=== PATIENT | female | born 1985 | race African-American/Black ===

== ENCOUNTER 2025-05-17 15:20 | Outpatient (AMB) | payer OTHER, SELFPAY ==
--- NOTE | 2025-05-17 15:35 | A.OFFVIS_ITS ---
Intake Visit Reasons: fu for seizures Allergies lisinopril (LISINOPRIL) Allergy (Unknown, Unverified 06/09/20 19:50) ANGIOEDEMA paroxetine (From PAXIL) Allergy (Unknown, Unverified 06/09/20 19:50) RESTLESS Medication List - Last Reconciled 05/17/25 by Piter Amor MD amlodipine 5 mg PO BID cetirizine 10 mg PO DAILY ergocalciferol (vitamin D2) 1,250 mcg PO QWEEK fluticasone propionate 50 mcg/actuation intranasal hydralazine 25 mg PO TID labetalol 200 mg PO BID levetiracetam 500 mg PO BID losartan-hydrochlorothiazide 100-25 mg 1 tab PO DAILY pyridoxine (vitamin B6) (Vitamin B-6) 250 mg PO DAILY sertraline mg PO HPI Comments Details: 39 years old right-handed woman with hypertension and headaches. She has been having headaches for many years. Recently her headaches have become more frequent and intense. Also she has developed new set of symptoms. Couple of times she went emergency room after developing left-sided numbness and headache. Numbness started in head and neck area and it took a few minutes to travel down to her left foot. It lasted for an hour to an she had severe headache associated with it. Both times she went to the emergency room. There was no history of recent trauma. Headache was usually bitemporal or in the back of the head, pressure to throbbing type, moderate to severe, worse with light and noise, and associated with nausea. She would prefer to go to a dark room and rest. It could lender on for hours to days. She is presenting with seizures and neurological symptoms. Her initial seizure on March 15, 2023, involved four episodes within ten minutes, leading to her hospitalization at [facility] for imaging studies. Subsequently, she experienced another seizure during a hot day, followed by an admission to [facility], where she received Keppra. The patient developed progressive bilateral numbness and tingling in her extremities. She has undergone extensive imaging and stays at her prior hospital visits but exhibits persistent symptoms despite these evaluations. She experienced another seizure and a fall two weeks ago, resulting in hand swelling and another hospitalization at [facility]. Additionally, the patient ex periences significant psychological stress due to her 's colon cancer diagnosis, contributing to her condition. [facility] Medical History (Updated 05/17/25 @ 15:46 by Piter Amor MD) Migraine with aura Migraine without aura Review of Systems Const Details: - Neurological: Reports seizures, weakness, numbness, and tingling in arms and legs. - Psychological: Reports significant stress due to 's illness. Physical Exam Neuro Other: Mental Status: Alert and oriented to person, place, and time. Normal attention. Normal spontaneous speech, fluency, and comprehension. No obvious issues with mood and memory. Affect is appropriate. Cranial Nerves: CN II: Visual akers full to confrontation, visual acuity intact. CN III, IV, : Pupils equal, round, reactive to light and accommodation. Extraocular movements are normal. CN V: Facial sensation is normal. CN VII: Facial movements symmetrical. CN VIII: Hearing intact to bedside conversation is normal. CN IX, X: Palate elevates symmetrically. CN XI: Shoulder shrug and head turn symmetrical. CN XII: Tongue midline without atrophy or fasciculations. Motor: Bulk and tone normal in all extremities. No significant muscle weakness in arms and legs. No drift. Extrapyramidal: Full facial expressions and blinking. No rigidity. Movements are appropriate with no tremor or abnormality. Speech: Normal; no dysarthria or tremor. Assessment & Plan Assessment & Plan (1) Migraine without aura: Code(s): G43.009 - Migraine without aura, not intractable, without status migrainosus Category: Medical Qualifiers: Status migrainosus presence: without status migrainosus Intractability: not intractable Qualified Code(s): G43.009 - Migraine without aura, not intractable, without status migrainosus (2) Migraine with aura: Code(s): G43.109 - Migraine with aura, not intractable, without status migrainosus Category: Medical Qualifiers: Status migrainosus presence: without status migrainosus Intractability: not intractable Qualified Code(s): G43.109 - Migraine with aura, not intractable, without status migrainosus (3) Seizure disorder: Comment: CT brain WO at [facility] in February 2025: [place] (reported) CTA brain and neck at [facility] in February 2025: [place] (reported) MRI brain WO at [facility] in February 2025: [place] (reported) EEG at [facility] in February 2025: [place] (reported) Code(s): G40.909 - Epilepsy, unspecified, not intractable, without status epilepticus Category: Medical Plan Impression: a: Seizure disorder, nature unclear, epileptic vs non b: Migraine with and w/o aura Rec: 48 hr EEG She was educated about both possibilities. She was already seeing a therapist and has indicated about some significant stresses in her life. Orders: Orders EEG ambulatory Today G40.909 - Epilepsy, unspecified, not intractable, without status epilepticus Coding Level of Care Code Est Pt Level 4 (67559) Diagnoses Migraine without aura and without status migrainosus, not intractable G43.009 Status migrainosus presence: without status migrainosus Intractability: not intractable Migraine with aura and without status migrainosus, not intractable G43.109 Status migrainosus presence: without status migrainosus Intractability: not intractable Seizure disorder G40.909
--- OUTSIDE RECORDS SUMMARY | 2025-05-17 16:56 | XMS_ITS | Clinical Summary ---
Author Organization [facility] Address [address] [place] [address] Phone Care Team Providers Care National Sales Consultant Name Role Phone Yusra Nick MD Primary Care Provider [phone] Allergies Active Allergy Reactions Criticality Noted Date Comments Lisinopril 04/03/2019 Angioedema Paroxetine 06/10/2014 Sleeplessness, restlessness sleeplessness Medications levonorgestreL (MIRENA) 21 mcg/24hr (up to 8 yrs) 52 mg IUD 1 each by Intrauterine route Active losartan-hydroC HLOROthiazide (HYZAAR) 100-25 mg per tablet Take 1 tablet by mouth 1 (one) time each day. 4 09/04/20 25 Active sertraline (ZOLOFT) 50 mg tabletIndicatio ns:Anxiety Take 1 tablet (50 mg total) by mouth 1 (one) time each day. 90 tablet 5 Active amLODIPine (NORVASC) 5 mg tablet TAKE 1 TABLET BY MOUTH 2 TIMES DAILY FOR 180 DAYS. 180 tablet 1 5 Active hydrALAZINE (APRESOLINE) 25 mg tablet Take 1 tablet (25 mg total) by mouth 3 (three) times a day. 270 tablet 1 5 Active labetaloL (NORMODYNE) 200 mg tablet TAKE 1 TABLET BY MOUTH 2 TIMES DAILY FOR 180 DAYS. 180 tablet 1 5 Active ergocalciferol (VITAMIN D-2) 1,250 mcg (50,000 unit) capsule Take 1 capsule (50,000 Units total) by mouth 1 (one) time per week. 12 each 5 03/17/20 26 Active pyridoxine (B-6) 250 mg tablet Take 1 tablet (250 mg total) by mouth 1 (one) time each day. 30 tablet 2 5 03/17/20 26 Active fluticasone propionate (FLONASE) 50 mcg/actuation nasal spray Administer 2 sprays into each nostril 1 (one) time each day. 5 Active amoxicillin-cla vulanate (AUGMENTIN) 875-125 mg per tablet Take 1 tablet by mouth 2 (two) times a day. for 7 days 5 Active cetirizine (ZyrTEC) 10 mg tablet Take 1 tablet (10 mg total) by mouth 1 (one) time each day. 5 Active levETIRAcetam (KEPPRA) 500 mg tablet Take 1 tablet (500 mg total) by mouth 2 (two) times a day. 60 each 5 06/02/20 25 Active Active Problems Problem Noted Date Diagnosed Date Seizure ([facility] V24, [facility] V28) 03/16/2025 Acute left-sided weakness 03/15/2025 Cervical spondylosis 02/06/2024 Overview (09/01/2024): Last Assessment & Plan: Patient is almost 2 months s/p C5-6, C6-7 ACDF, states that she sees improvement in her preop left arm and leg numbness, gets occasional tingling in the fingers but otherwise doing well. Her main concern today is neck soreness the last 4 days, she has not been sleeping well, has difficulty turning her head to the left, has b/l upper trapezius spasm. No specific inciting event to flareup her neck pain and spasm/stiffness. She has not been needing oxycodone just Tylenol prn, however the last 3 nights did take oxycodone at bedtime. She denies fever, sweats chills, issues with the incision, swallow issues. Ms. Guzman has seen some improvement in her preop symptoms, has some persistent neck pain and spasm postop, is not yet ready to return to work. We talked about trying physical therapy for massage and TENS unit to see if this can help some of the spasm. She has Flexeril at home, will see if that helps as well. She states she has some recent elevated blood pressures, following up with her PCP. She had cervical spine x-rays done today prior to coming in and hardware intact, looks good. She can follow-up with with C-spine x-rays at 1 year. All questions answered. Assessment & Plan (11/13/2024 4:12 PM EST): Ms. Guzman is approximately 8 months s/p C5-6, C6-7 ACDF and was doing pretty well but recently has noticed increased neck pain, and a couple weeks of constant n/t in arms, hands and fingers. Her finger n/t seems to start in the 4th and 5th digits, but affect all the digits. She has a history of right carpal tunnel release in 2022, but did not have surgery for her left carpal tunnel syndrome. She quit smoking after her cervical fusion. No particular inciting event. She was in significant pain and went to urgent care, they prescribed Cyclobenzaprine and Diclofenac gel. It helped her sleep last night. She has been takes warm tub baths to help her neck pain. When she gets the shooting pain she feels her legs are weak. She had x-rays yesterday at [facility] (urgent care) of her C/S, T/S, L/S, her C5-7 hardware is intact, there appears to be more bony fusion at C5-6 but still some bone forming in anterior C6-7 disc space. Minimal decreased disc space C7- T1. Otherwise no significant findings in spine x-rays. We looked at the x-rays together. Ms. Guzman has increasing neck pain and arm numbness over the past few weeks. I will review the x-rays with Dr. Caro, see if she recommends external bone stimulator or updated C/S MRI. I also will get EMG/NCS UEs since she has + Tinel's at the elbows b/l and left wrist. She was cleared by Dr. Peters to try Medrol Dosepack for her pain and n/t. She states she cannot take NSAIDS because she had gastric bypass (> 2 yrs ago). I gave her rx for P.T. for the neck spasm. I will call her after reviewing her x-rays with Dr. Caro. All questions answered. ADDENDUM 11/13/2024: I reviewed patient's C-spine x-rays with Dr. Caro, she notes that C5-6 does appear to have more bone growth than C6-7, although typically 1 level does fuse faster than the other. Since patient has increasing neck pain she would like us to order external bone stimulator and have patient follow-up in a couple months. Vitamin D deficiency 09/07/2022 Leukocytosis 09/07/2022 Hypercholesterolemia 08/03/2022 Gastroesophageal reflux disease without esophagi tis 03/02/2022 Hepatic steatosis 04/23/2021 Ventricular bigeminy 04/03/2021 Overview (09/01/2024): Ventricular bigeminy History of COVID-19 10/23/2020 COVID-19 virus infection 10/23/2020 Left carpal tunnel syndrome 11/18/2019 LVH (left ventricular hypertrophy) 06/03/2019 Overview (09/01/2024): On echo 05/2019, nl LV function, nl EF Last Assessment & Plan: The patient's LVH has not progressed on her most recent stress echocardiogram. Ongoing blood pressure control and weight management are paramount. Update her echocardiogram in about a year to follow her LVH. 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 [facility] Treatment Polysomnogram: Date 10/27/2015; Wt 248#; BMI 46; SE 81%; SM 100%; REM 28%; CPAP @ 10 -> AHI 0.9, average oxygen saturation 97% (lowest 94%). Mild diastolic dysfunction 06/10/2014 Overview (09/01/2024): Echo 2008/EFR 50-55% Migraine 06/10/2014 Hypertension 06/10/2014 Overview (09/01/2024): Last Assessment & Plan: The patient's blood pressure is well controlled in office and during her stress test. Her blood pressure is also well controlled on chart review. She is now followed by Dr. Stinson from [facility], and she has an appointment upcoming with him in September. For now, continue her beta-spencer, ARB, aldosterone blockade and clonidine. I do not see that she had a repeat urine catecholamine test as Dr. Haynes discussed at her last visit, but we will leave this up to Dr. Stinson to determine if he would like to repeat now that her blood pressure is well controlled. Hirsutism 06/10/2014 Anxiety 06/10/2014 Encounters Date Type Department Care Team Description 05/17/2025 Telephone Adult Medicine [address] [phone] Glen Beavers LPN 05/03/2025 3:07 PM EDT - 05/03/2025 4:[address] [facility] Emergency [address] [place] [address] Sam Syed MD Seizure ([facility] V24, [facility] V28) (Primary Dx); Pain of left hand; Acute left ankle pain Discharge Disposition: Home or Self Care 04/12/2025 8:45 AM EDT Office Visit Bariatric Surgery - [place] [address] [facility] [address] [place] [address] Gemma Peters MD S/P gastric bypass (Primary Dx); Weight gain; Seizure (CMS/HCC V24, CMS/HCC V28); Inactivity 03/30/2025 11:30 AM EDT Office Visit Adult [address] [phone] Joanne Smith NP Seizure (CMS/HCC V24, CMS/HCC V28) (Primary Dx) 03/30/2025 Telephone Adult [address] [address] Joanne Smith NP 03/25/2025 Telephone Adult [address] [phone] Yusra Nick MD 03/23/2025 Telephone Adult [address] [phone] Yusra Nick MD 03/22/2025 10:30 AM EDT Office Visit [address] [phone] Melvi Danielle MD New onset seizure (CMS/HCC V24, CMS/HCC V28) (Primary Dx); Primary hypertension; Marijuana use; Left hemiparesis (CMS/HCC V24, CMS/HCC V28); Cigarette smoker 03/18/2025 Telephone Adult [address] [address] Yusra Nick MD 03/16/2025 10:22 AM EDT - 03/17/2025 4:15 PM EDT Hospital Encounter [facility] Emergency [address] [place] [address] Arun Houston MD Kela, Kashyap Devendrabhai, MD Weakness (Primary Dx) Discharge Disposition: Home or Self Care 03/15/2025 7:42 AM EDT - 03/15/2025 11:30 PM EDT Hospital Encounter [facility] Emergency [address] [place] [address] Norbert Santoyo MD Bukalo, Nermina, MD Seizure ([facility] V24, [facility] V28) (Primary Dx); Chest pain, unspecified type Discharge Disposition: Left Against Medical Advice from Last 3 Months Immunizations Name Administration Dates Next Due DTaP (Infanrix) 6wks to less than 7yo ,07/24/1989,07/24/1988,08/23,06/23/1987 [id number] (Pentacel) 2mo to less than 5yo 07/24/1988 Diptheria & Tetanus, 6wks to less than 7yo 07/01/2003,08/02/1997 HPV, Quadrivalent 11/01/2011 Hepatitis B Pediatric (Enger ix B; Recombivax HB) to less than 20 yo 07/11/1999,02/10/1999,12/22/1998 Influenza Quadravalent, MDCK , 0.5ml, with preservative (Flucelvax) 6mo and older 07/11/2018 Influenza trivalent, 0.5mL, preservative free (Fluarix; FluLaval; Fluzone) ages 6mo and older (Afluria) 3 years and older 06/09/2024,06/27/2021,07/28/2020 MMR, measles mumps and rubel la Live (Priorix; M-M-R II) 12mo and older 12/23/2019 OPV 03/23/1991, 9,08/03/1988,08/23,06/23/1987 PPD Test 07/04/2015,06/05/2014,04/19/2010 [place] SARS-CoV-2 COVID-19, mRNA, LNP-S, preservative free 09/08/2021 Pneumococcal polysaccharide 23 valent (Pneumovax 23) 2yo and older 10/24/2017 Tdap Tetanus diptheria acell ular pertussis (Boostrix; Adacel) 7yo and older 06/30/2021,12/16/2019,09/20/2018,08/09 Varicella live (Varivax) 12m o and older 12/23/2019,09/23/1991 Surgical History Surgery Date Site/Laterality Comments SECTION x2 TONSILLECTOMY OTHER SURGICAL HISTORY 2011 2009/chlamydia/neg since APPENDECTOMY 10/30/2015 OTHER SURGICAL HISTORY 10/03/2017 EXCISION PILONIDAL CYST/SINUS COMPLICATED; COMMENT: Recurrent NECK SURGERY 02/24/2024 C5-6, C6-7 ACDF, Dr. Caro GASTRIC BYPASS 09/23/2021 - 09/22/2022 Dr. Gardner Medical History Medical History Date Comments Anxiety 06/10/2014 Hypertension 06/10/2014 Hirsutism 06/10/2014 Migraine 06/10/2014 History of chlamydia 06/10/20142009/paps n eg since Morbid obesity ([facility] V24, [facility] V28) 014 bmi 41.66 /on 11/01/11 Mild diastolic dysfunction 06/10/2014 DM (diabetes mellitus), type 2 with renal complications ([facility] V24, [facility] V28) 12/27/2017 Ventricular bigeminy 04/03/2021 LVH (left ventricular hypertrophy) 06/03/2019 On echo 05/2019, nl LV function, nl EF Gastroesophageal reflux dise ase without esophagitis 03/02/2022 Hepatic steatosis 04/23/2021 Left carpal tunnel syndrome 11/18/2019 Obstructive sleep apnea hypo pnea, moderate 09/29/2015 09/17/15, [facility], titratio n study, recommends CPAP 10 , elevation of head [facility] [place]ysomnogram: Date 09/17/2015; Wt 248#; BMI 43; SE 93%; SM 99%; REM 13%; AHI 16, REM AHI 15, Central apneas 0; Obstructive apneas 1; Mixed apneas 0; hypopneas 77; average oxygen saturation 94% (lowest 90%). [facility] Treatment Polysomnogram: Date 10/27/2015; Wt 248#; BMI* S/P bariatric surgery 01/17/2024 Family History Medical History Relation Name Comments Coronary artery disease Mother's Brother 41 Relation Name Status Comments Mother's Brother Social History Tobacco Use Types Packs/Day Years Used Date Smoking Tobacco: Every Day Cigarettes 0.4 21.1 Started: 2002; Last attempted to quit: 01/22/2024 Smokeless Tobacco: Never Tobacco Cessation:Ready to Q uit: Not Asked; Counseling Given: Not Answered Alcohol Use Standard Drinks/Week Comments Yes 0 (1 standard drink = 0.6 oz pur e alcohol) Social Comments No Sex and Gender Information Value Date Recorded Sex Assigned at Not on file Legal Sex Female 7:39 AM EST Gender Identity Not on file Sexual Orientation Not on file Obstetrics History Last Filed Vital Signs Vital Sign Reading Time Taken Comments Blood Pressure 168/94 05/03/2025 1:02 PM EDT Pulse 90 05/03/2025 1:02 PM EDT Temperature 36.9 C (98.4 F) 05/03/2025 1:02 PM EDT Respiratory Rate 18 05/03/2025 1:02 PM EDT Oxygen Saturation 100% 05/03/2025 1:02 PM EDT Inhaled Oxygen Concentration - - Weight 86.2 kg (190 lb) 05/03/2025 1:02 PM EDT Height 160 cm (5' 3 ) 05/03/2025 1:02 PM EDT Body Mass Index 33.66 05/03/2025 1:02 PM EDT Plan of Treatment Upcoming Encounters Date Type Department Care Team (Late st Contact Info) Description 05/28/2025 10:45 AM EDT Office Visit Bariatric Surgery - [place] [address] [facility] [address] [place] [phone] Gemma Peters MD [address] [place] [address] 07/06/2025 9:00 AM EDT Consult [facility] [place] - [place] [address] [facility] [address] [place] [phone] Alejandro Wagner MD [address] [place] [address] 07/12/2025 8:30 AM EDT Office Visit Adult Medicine - [place] [address] [place], [place] [phone] Joanne Smith NP [address] [place], [place] Health Maintenance Due Date Last Done Comments Diabetes: Annual Foot Exam 1996 Diabetes: Annual Retina Eye Exam 1996 Hepatitis A Vaccines (1 of 2 - Risk 2-dose series) 2005 HPV Vaccines (2 - 3-dose series) 11/29/2011 11/01/2011 Pneumococcal Vaccine: Pediatrics (0 to 5 Years) and At-Risk Patients (6 to 49 Years) (2 of 2 - PCV) 10/24/2018 10/24/2017 Cervical Cancer Screening: Pap Smear 03/20/2022 03/20/2019 HIV Screening 08/30/2022 Hepatitis C Screening 08/30/2022 Social Influencers of Health Screening 08/30/2022 Diabetes: Annual Urine Albumin-Creatinine Ratio (uACR) 08/01/2023 08/01/2022 COVID-19 Vaccine ( season) 2024 07/28/2023, 08/02/2022, 09/08/2021, Additional history exists Diabetes: Blood Sugar Control Test (HGBA1C) 07/26/2024 01/24/2024, 01/24/2024 Depression Screening 09/23/2024 05/06/2024 Influenza Vaccine (#1) 2025 , 06/27/2021, 07/28/2020, Additional history exists Diabetes: Annual GFR (Glomerular Filtration Rate) 03/17/2026 03/17/2025, 03/16/2025, 03/15/2025, Additional history exists Hypertension/CHF/CAD Annual BMP Blood Test 03/17/2026 03/17/2025, 03/16/2025, 03/15/2025, Additional history exists Cholesterol Screening (Lipid Panel) 08/01/2027 08/01/2022 DTaP,Tdap,and Td Vaccines (12 - Td or Tdap) 06/30/2031 06/30/2021, 12/16/2019, 09/20/2018, Additional history exists HIB Vaccines Completed 07/24/1988 IPV Vaccines Completed 03/23/1991, 09/1988, 08/03/1988, Additional history exists Hepatitis B Vaccines Completed 07/11/1999, 02/10/1999, 01/10/1999, Additional history exists MMR Vaccines Completed 12/23/2019, 08/03/1988 Varicella Vaccines Aged Out 12/23/2019, 09/23/1991 No longer eligible based on patient's age to complete this topic Meningococcal ACWY Vaccine Aged Out N o longer eligible based on patient's age to complete this topic Meningococcal B Vaccine Aged Out No l onger eligible based on patient's age to complete this topic RSV Immunization Patients Under 20 months Aged Out No longer eligible based on patient's age to complete this topic Procedures Procedure Name Priority Date/Time Associated Diagnosis Comments XR WRIST 3+ VIEWS LEFT STAT 5 1:52 PM EDT XR ANKLE 3+ VIEWS LEFT STAT 5 1:52 PM EDT ROUTINE EEG Routine 03/17/2025 9:00 AM EDT CBC WITH AUTO DIFFERENTIAL Routine 03/17/2025 4:31 AM EDT PHOSPHORUS Routine 03/17/2025 4:31 AM EDT CBC AND DIFFERENTIAL Routine 03/17/2025 4:31 AM EDT BASIC METABOLIC PANEL Routine 03/17/2025 4:31 AM EDT MR BRAIN W CONTRAST Routine 03/16/2025 9 :21 PM EDT LT BLUE - NA CITRATE Routine 03/16/2025 3:17 PM EDT EXTRA TUBES Routine 03/16/2025 3:17 PM EDT ANAPLASMA PHAGOCYTOPHILUM ANTIBODIES, IGG AND IGM Routine 03/16/2025 3:17 PM EDT EHRLICHIA CHAFFEENSIS ANTIBODIES, IGG AND IGM Routine 03/16/2025 3:17 PM EDT DRUG ABUSE SCREEN 8A PANEL, URINE STAT 03/16/2025 10:56 AM EDT YELLOW URINE NO ADDITIVE Routine 03/16/2025 10:55 AM EDT ARIAS URINE CULTURE TUBE Routine 03/16/20 10:55 AM EDT EXTRA TUBES Routine 03/16/2025 10:55 AM EDT ECG 12-LEAD STAT 03/16/2025 10:44 AM EDT THYROID STIMULATING HORMONE WITH REFLEX TO FREE T4 AND FREE T3 Add-On 03/16/2025 10:32 AM EDT VITAMIN B12 AND FOLATE Add-On 10:32 AM EDT TREPONEMA PALLIDUM ANTIBODY WITH REFLEX TO RPR AND PARTICLE AGGLUTINATION Add-On 03/16/2025 10:32 AM EDT BORRELIA BURGDORFERI ANTIBODY Add-On 03/16/2025 10:32 AM EDT CREATINE KINASE STAT 03/16/2025 10:32 AM EDT PROLACTIN STAT 03/16/2025 10:32 AM EDT B-TYPE NATRIURETIC PEPTIDE STAT 03/16/2025 10:28 AM EDT TROPONIN I HIGH SENSITIVITY STAT 03/16/2025 10:28 AM EDT ETHANOL Add-On 03/16/2025 9:01 AM EDT CBC WITH AUTO DIFFERENTIAL STAT 03/16/2025 9:01 AM EDT MAGNESIUM STAT 03/16/2025 9:01 AM EDT LIPASE STAT 03/16/2025 9:01 AM EDT COMPREHENSIVE METABOLIC PANEL STAT 03/16/2025 9:01 AM EDT CBC AND DIFFERENTIAL STAT 03/16/2025 9:01 AM EDT TROPONIN I HIGH SENSITIVITY STAT 03/16/2025 9:01 AM EDT ECG 12-LEAD STAT 03/16/2025 7:52 AM EDT ECG ANNOTATED 03/16/2025 MR BRAIN WO CONTRAST Routine 03/15/2025 5:[address] CHEST WO CONTRAST STAT 03/15/2025 11:14 AM EDT ECG 12-LEAD STAT 03/15/2025 9:23 AM EDT TROPONIN I HIGH SENSITIVITY STAT 03/15/2025 9:12 AM EDT POC GLUCOSE STAT 03/15/2025 8:42 AM EDT POCT GLUCOSE BLOOD Routine 03/15/2025 8: 41 AM EDT XR CHEST 1 VIEW STAT 03/15/2025 8:30 AM EDT ACTIVATED PARTIAL THROMBOPLASTIN TIME STAT 03/15/2025 8:19 AM EDT PROTHROMBIN TIME WITH INR STAT 03/15/2025 8:19 AM EDT ECG 12-LEAD STAT 03/15/2025 8:[address] ANGIO HEAD/NECK STROKE WO AND/OR W CONTRAST STAT 03/15/2025 8:[address] HEAD STROKE WO CONTRAST STAT 03/15/2025 8:02 AM EDT CREATINE KINASE AND CKMB Add-On 03/15/2025 7:49 AM EDT B-TYPE NATRIURETIC PEPTIDE STAT 03/15/2025 7:49 AM EDT LIPASE STAT 03/15/2025 7:49 AM EDT TROPONIN I HIGH SENSITIVITY STAT 03/15/2025 7:49 AM EDT CBC WITH AUTO DIFFERENTIAL STAT 03/15/2025 7:49 AM EDT COMPREHENSIVE METABOLIC PANEL STAT 03/15/2025 7:49 AM EDT PROLACTIN STAT 03/15/2025 7:49 AM EDT MAGNESIUM STAT 03/15/2025 7:49 AM EDT CBC AND DIFFERENTIAL STAT 03/15/2025 7:49 AM EDT INTERFERON GAMMA INTERPRETATION Routine 03/03/2025 8:20 AM EDT Screening-pulmonary TB PHOSPHORUS Routine 03/03/2025 8:20 AM EDT Essential hypertension CBC WITH AUTO DIFFERENTIAL Routine 03/03/2025 8:20 AM EDT S/P gastric bypass INTERFERON GAMMA ANTIGEN 2 Routine 03/03/2025 8:20 AM EDT Screening-pulmonary TB INTERFERON GAMMA ANTIGEN 1 Routine 03/03/2025 8:20 AM EDT Screening-pulmonary TB INTERFERON GAMMA MITOGEN Routine 03/03/2025 8:20 AM EDT Screening-pulmonary TB INTERFERON GAMMA NIL Routine 03/03/2025 8:20 AM EDT Screening-pulmonary TB PARATHYROID HORMONE INTACT Routine 03/03/2025 8:20 AM EDT S/P gastric bypass ZINC Routine 03/03/2025 8:20 AM EDT S/P gastric bypass VITAMIN D 25 HYDROXY Routine 03/03/2025 8:20 AM EDT S/P gastric bypass VITAMIN B6 Routine 03/03/2025 8:20 AM EDT S/P gastric bypass VITAMIN B12 Routine 03/03/2025 8:20 AM EDT S/P gastric bypass VITAMIN B1 Routine 03/03/2025 8:20 AM EDT S/P gastric bypass VITAMIN A Routine 03/03/2025 8:20 AM EDT S/P gastric bypass SELENIUM SERUM Routine 03/03/2025 8:20 AM EDT S/P gastric bypass IRON AND TIBC Routine 03/03/2025 8:20 AM EDT S/P gastric bypass FOLATE Routine 03/03/2025 8:20 AM EDT S/P gastric bypass COMPREHENSIVE METABOLIC PANEL Routine 03/03/2025 8:20 AM EDT S/P gastric bypass CBC AND DIFFERENTIAL Routine 03/03/2025 8:20 AM EDT S/P gastric bypass INTERFERON GAMMA FOR TB, QUALITATIVE Routine 03/03/2025 8:20 AM EDT Screening-pulmonary TB HM DEPRESSION SCREENING Routine 05/06/2024 HEMOGLOBIN A1C Routine 01/24/2024 HM URINE ALBUMIN CREATININE RATIO Routine 08/01/2022 LIPID PANEL Routine 08/01/2022 HM PAP SMEAR Routine 03/20/2019 from Last 3 Months or Most Recently Relevant to Health Maintenance Results * XR Ankle 3+ Views Left (05/03/2025 1:52 PM EDT) Anatomical Region Laterality Modality Lower Extremities, Ankle Left Radiogr aphic Imaging 05/03/2025 2:05 PM EDT Impressions 05/03/2025 2:05 PM EDT Normal radiographic appearance of the ankle. -------- FINAL REPORT -------- Dictated By: Dagoberto Del Rosario Dictated Date: 05/03/2025 14:05 ET Assigned Physician: Dagoberto Del Rosario Reviewed and Electronically Signed By: Dagoberto Del Rosario Signed Date: 05/03/2025 14:05 ET Workstation ID: [id number] Transcribed By: Self Edit Transcribed Date: 05/03/2025 14:05 ET Narrative 05/03/2025 2:05 PM EDT PROCEDURE: Radiographs of the left ankle. HISTORY: fall trauma w hand pain. COMPARISON: None. FINDINGS: Small osteophyte arising from the anterior aspect of the distal tibial plafond. Small retrocalcaneal spur. No fracture, malalignment, or focal bony lesion. Symmetric mortise. Intact talar dome. No significant degenerative change. No evidence of an ankle joint effusion. Procedure Note Dagoberto Del Rosario MD - 05/03/2025 PROCEDURE: Radiographs of the left ankle. HISTORY: fall trauma w hand pain. COMPARISON: None. FINDINGS: Small osteophyte arising from the anterior aspect of the distal tibialplafond. Small retrocalcaneal spur. No fracture, malalignment, or focalbony lesion. Symmetric mortise. Intact talar dome. No significantdegenerative change. No evidence of an ankle joint effusion. IMPRESSION: Normal radiographic appearance of the ankle. -------- FINAL REPORT -------- Dictated By: Dagoberto Del Rosario Dictated Date: 05/03/2025 14:05 ET Assigned Physician: Dagoberto Del Rosario Reviewed and Electronically Signed By: Dagoberto Del Rosario Signed Date: 05/03/2025 14:05 ET Workstation ID: [id number] Transcribed By: Self Edit Transcribed Date: 05/03/2025 14:05 ET Sam Syed MD IMG XR PROCEDURES Final Result * XR Wrist 3+ Views Left (05/03/2025 1:52 PM EDT) Anatomical Region Laterality Modality Upper Extremities, Wrist Left Radiogr aphic Imaging 05/03/2025 2:08 PM EDT Impressions 05/03/2025 2:11 PM EDT Normal radiographic appearance of the wrist. If there is snuffbox tenderness and an appropriate trauma history, recommend immobilization with follow-up imaging in 10 days to exclude an occult scaphoid fracture. -------- FINAL REPORT -------- Dictated By: Dagoberto Del Rosario Dictated Date: 05/03/2025 14:08 ET Assigned Physician: Dagoberto Del Rosario Reviewed and Electronically Signed By: Dagoberto Del Rosario Signed Date: 05/03/2025 14:11 ET Workstation ID: [id number] Transcribed By: Self Edit Transcribed Date: 05/03/2025 14:08 ET Narrative 05/03/2025 2:11 PM EDT PROCEDURE: Radiographs of the left wrist. HISTORY: fall trauma w pain. COMPARISON: None. FINDINGS: Normal bony mineralization. No fracture or malalignment. No erosion or significant degenerative change. No bony lesion. Soft tissues are unremarkable. Procedure Note Dagoberto Del Rosario MD - 05/03/2025 PROCEDURE: Radiographs of the left wrist. HISTORY: fall trauma w pain. COMPARISON: None. FINDINGS: Normal bony mineralization. No fracture or malalignment. No erosion orsignificant degenerative change. No bony lesion. Soft tissues areunremarkable. IMPRESSION: Normal radiographic appearance of the wrist. If there is snuffboxtenderness and an appropriate trauma history, recommend immobilizationwith follow-up imaging in 10 days to exclude an occult scaphoidfracture. -------- FINAL REPORT -------- Dictated By: Dagoberto Del Rosario Dictated Date: 05/03/2025 14:08 ET Assigned Physician: Dagoberto Del Rosario Reviewed and Electronically Signed By: Dagoberto Del Rosario Signed Date: 05/03/2025 14:11 ET Workstation ID: [id number] Transcribed By: Self Edit Transcribed Date: 05/03/2025 14:08 ET Sam Syed MD IMG XR PROCEDURES Final Result * Routine EEG (03/17/2025 9:00 AM EDT) Narrative Gavin Morales MD - 03/17/2025 4:15 PM EDT Gavin Morales MD 03/18/2025 5:56 PM ROUTINE ELECTROENCEPHALOGRAPHY (EEG) REPORT Study Date: 03/17/25 Clinical Information History: Ceci Guzman is a 39 y.o. woman presented with chest pain and seizure like activity. Medications: No current facility-administered medications for this encounter. Current Outpatient Medications: amLODIPine (NORVASC) 5 mg tablet, TAKE 1 TABLET BY MOUTH 2 TIMES DAILY FOR 180 DAYS. (Patient taking differently: Take 1 tablet (5 mg total) by mouth 2 (two) times a day.), Disp: 180 tablet, Rfl: 1 ergocalciferol (VITAMIN D-2) 1,250 mcg (50,000 unit) capsule, Take 1 capsule (50,000 Units total) by mouth 1 (one) time per week., Disp: 12 each, Rfl: 0 hydrALAZINE (APRESOLINE) 25 mg tablet, Take 1 tablet (25 mg total) by mouth 3 (three) times a day. (Patient taking differently: Take 1 tablet (25 mg total) by mouth 3 (three) times a day if needed (hypertension).), Disp: 270 tablet, Rfl: 1 labetaloL (NORMODYNE) 200 mg tablet, TAKE 1 TABLET BY MOUTH 2 TIMES DAILY FOR 180 DAYS. (Patient taking differently: Take 1 tablet (200 mg total) by mouth 2 (two) times a day. TAKE 1 TABLET BY MOUTH 2 TIMES DAILY FOR 180 DAYS.), Disp: 180 tablet, Rfl: 1 levonorgestreL (MIRENA) 21 mcg/24hr (up to 8 yrs) 52 mg IUD, 1 each by Intrauterine route, Disp: , Rfl: losartan-hydroCHLOROthiazide (HYZAAR) 100-25 mg per tablet, Take 1 tablet by mouth 1 (one) time each day., Disp: , Rfl: pyridoxine (B-6) 250 mg tablet, Take 1 tablet (250 mg total) by mouth 1 (one) time each day., Disp: 30 tablet, Rfl: 2 sertraline (ZOLOFT) 50 mg tablet, Take 1 tablet (50 mg total) by mouth 1 (one) time each day., Disp: 90 tablet, Rfl: 0 Recording Techniques A digital video EEG was performed using the standard international 10-20 electrode placement and single channel EKG electrode. Total Recording Time: 29 minutes Montages: Standard 10-20 system montages Type of Study: Routine EEG Video recorded: Yes Conditions of Recording: Awake - drowsy - asleep Results Background: The record was well organized. The waking EEG was characterized by a symmetrical, well-formed and modulated 10 Hz posterior dominant rhythm, with medium amplitude (20-70 uV) and reactive to eye opening. The background over the rest of the head consisted of a mixture of alpha and beta frequencies. Sleep: During drowsiness, the alpha rhythm attenuated and diffuse background slowing appeared. Stage 2 sleep was characterized by the appearance of sleep spindles and vertex waves. Focal slowing: There were no focal abnormalities or persistent asymmetries. Epileptiform discharges: None Activation Procedures: Hyperventilation: Hyperventilation for 3 minutes produced generalized slowing Photic Simulation: Produced an occipital driving response at some frequencies, but did not result in any abnormal discharges. Clinical events: None Heart Rate: Normal sinus rhythm Classification of the findings: Normal Impression This is a normal routine EEG recording in the [id number]-paoeek states. There were no seizures, periodic patterns, or epileptiform discharges. There is no focal slowing or persistent focal asymmetries of the background rhythms. However, a normal EEG does not rule out epilepsy or seizure. Clinical correlation is advised. CC No ref. provider found Gavin Morales MD Epileptologist [facility] us Ana CHAVEZ NEUROLOGY ORDERABLES Final Resu lt * (ABNORMAL) CBC auto differential (03/17/2025 4:31 AM EDT) Only the most recent of4 resultswithin the time period is included. WBC 5.2 4.8 - 10.8 K/[facility] LAB HEMETOLOGY METHOD 03/17/2025 5:01 AM EDT [facility] RBC 3.60(L) 3.80 - 4.80 M/[facility] LAB HEMETOLOGY METHOD 03/17/2025 5:01 AM [facility] Hemoglobin 11.0(L) 11.5 - 16.0 g/dL LAB HEMETOLOGY METHOD 03/17/2025 5:01 AM [facility] Hematocrit 33.4(L) 35.0 - 47.0 % LAB HEMETOLOGY METHOD 03/17/2025 5:01 AM [facility] LAB MCV 91.8 79.0 - 98.0 FL LAB HEMETOLOGY METHOD 03/17/2025 5:01 AM [facility] MCH 30.2 27.0 - 32.0 pcg LAB HEMETOLOGY METHOD 03/17/2025 5:01 AM [facility] MCHC 32.9 32.0 - 37.0 g/dL LAB HEMETOLOGY METHOD 03/17/2025 5:01 AM [facility] RDW 13.7 11.0 - 15.0 % LAB HEMETOLOGY METHOD 03/17/2025 5:01 AM [facility] Platelets 231 130 - 400 K/mcL LAB HEMETOLOGY METHOD 03/17/2025 5:01 AM [facility] LAB MPV 9.8 7.0 - 11.0 FL LAB HEMETOLOGY METHOD 03/17/2025 5:01 AM [facility] NRBC 0.0 <1.0 % LAB HEMETOLOGY METHOD 03/17/2025 5:01 AM [facility] LAB NRBC Absolute 0.00 <0.10 K/mcL LAB HEMETOLOGY METHOD 03/17/2025 5:01 AM [facility] Neutrophils Relative 47.0 % LAB HEMETOLOGY METHOD 03/17/2025 5:01 AM [facility] Lymphocytes Relative 37.1 % LAB HEMETOLOGY METHOD 03/17/2025 5:01 AM [facility] Monocytes Relative 9.7 % LAB HEMETOLOGY METHOD 03/17/2025 5:01 AM EDT [facility] Eosinophils Relative 5.4 % LAB HEMETOLOGY METHOD 03/17/2025 5:01 AM [facility] Basophils Relative 0.6 % LAB [facility]EMETOLOGY [facility] Immature Granulocytes Relative 0.2 % LAB HEMETOLOGY METHOD 03/17/2025 5:01 AM EDT [facility] Neutrophils Absolute 2.43 1.50 - 7.00 K/mcL LAB HEMETOLOGY METHOD 03/17/2025 5:[facility] Lymphocytes Absolute 1.92 1.00 - 5.00 K/mcL LAB HEMETOLOGY METHOD 03/17/2025 5:01 [facility] Monocytes Absolute 0.50 0.20 - 1.00 K/mcL LAB HEMETOLOGY METHOD 03/17/2025 5:01 AM [facility] Eosinophils Absolute 0.28 0.00 - 0.50 K/mcL LAB HEMETOLOGY METHOD 03/17/2025 5:01 AM [facility] Basophils Absolute 0.03 0.00 - 0.20 K/mcL LAB HEMETOLOGY METHOD 03/17/2025 5:01 AM [facility] Immature Granulocytes Absolute 0.01 0.00 - 0.03 K/mcL LAB HEMETOLOGY METHOD 03/17/2025 5:01 AM [facility] Blood Venous blood specimen / Unknown Venipuncture / Unknown 03/17/2025 4:31 AM EDT 03/17/2025 4:49 AM EDT us Ana CHAVEZ LAB BLOOD ORDERABLES Final Resu lt [facility] [address] [place] [address], [place] [phone] * Phosphorus (03/17/2025 4:31 AM EDT) Only the most recent of2 resultswithin the time period is included. [facility] Phosphorus 4.1 2.5 - 4.5 mg/dL LAB CHEMISTRY METHOD 03/17/2025 5:12 AM EDT [facility] Blood Venous blood specimen / Unknown Venipuncture / Unknown 03/17/2025 4:31 AM EDT 03/17/2025 4:47 AM EDT Ana CHAVEZ LAB BLOOD ORDERABLES Final Resu lt [facility] [address] [place] [address], [place] [phone] * Basic metabolic panel (03/17/2025 4:31 AM EDT) [facility] Sodium 141 133 - 145 mmol/L LAB CHEMISTRY METHOD 03/17/2025 5:12 AM [facility] Potassium 3.6 3.5 - 5.5 mmol/L LAB CHEMISTRY METHOD 03/17/2025 5:12 AM [facility] Chloride 106 96 - 110 mmol/L LAB CHEMISTRY METHOD 03/17/2025 5:12 AM [facility] CO2 30 21 - 32 mmol/L LAB CHEMISTRY METHOD 03/17/2025 5:12 AM [facility] Anion Gap 5 3 - 11 LAB CHEMISTRY METHOD 03/17/2025 5:12 AM [facility] Glucose 90 70 - 100 mg/dL LAB CHEMISTRY METHOD 03/17/2025 5:12 AM [facility] BUN 10 5 - 25 mg/dL LAB CHEMISTRY METHOD 03/17/2025 5:12 AM [facility] Creatinine 0.74 0.50 - 1.10 mg/dL LAB CHEMISTRY METHOD 03/17/2025 5:12 AM EDT [facility] eGFR 106 >=60 mL/min/1. 73m2 LAB CHEMISTRY METHOD 03/17/2025 5:12 AM EDT [facility] Comment:Calculation based on the Chronic Kidney Disease Epidemiology Collaboration (CKD-EPI) equation refit without adjustment for race. BUN/Creatinine Ratio 13.5 LAB CHEMISTRY METHOD 03/17/2025 5:12 AM EDT [facility] Calcium 8.5 8.5 - 10.5 mg/dL LAB CHEMISTRY METHOD 03/17/2025 5:12 AM EDT [facility] Blood Venous blood specimen / Unknown Venipuncture / Unknown 03/17/2025 4:31 AM EDT 03/17/2025 4:47 AM EDT us Ana CHAVEZ LAB BLOOD ORDERABLES Final Resu lt [facility] [address] [place] [address], * MR Brain w Contrast (03/16/2025 9:21 PM EDT) Anatomical Region Laterality Modality Head and Neck Magnetic Resonan ce 03/16/2025 10:2 2 PM EDT Impressions 03/16/2025 10:22 PM EDT Impression: Extensive motion artifact is present. No definite abnormal postcontrast enhancement. Moderate paranasal sinus disease. This document has been electronically signed by: Lawrence De La Cruz MD on 03/16/2025 22:22:44 Narrative 03/16/2025 10:22 PM EDT INDICATION: left sided weakness MR Brain with gadolinium, limited study with postcontrast imaging only Comparison: MR/OT - MR BRAIN WO CONTRAST - 03/15/25 16:24 EDT Findings: Limited study given prominent motion artifact throughout the examination. No definite abnormal postcontrast enhancement. Moderate paranasal sinus disease. No midline shift or mass lesion identified. Procedure Note Lawrence De La Cruz MD - 03/16/2025 INDICATION: left sided weakness MR Brain with gadolinium, limited study with postcontrast imaging only Comparison: MR/OT - MR BRAIN WO CONTRAST - 03/15/25 16:24 EDT Findings: Limited study given prominent motion artifact throughout theexamination. No definite abnormal postcontrast enhancement. Moderate paranasal sinus disease. No midline shift or mass lesion identified. IMPRESSION: Impression: Extensive motion artifact is present. No definite abnormal postcontrast enhancement. Moderate paranasal sinus disease. This document has been electronically signed by: Lawrence De La Cruz MD on 03/16/2025 22:22:44 Ana CHAVEZ [facility] [place] PROCEDURES Final Result * Anaplasma phagocytophilum antibodies, IGG and IGM (03/16/2025 3:17 PM EDT) Anaplasma phagocytophilum IgG Ab <1:64 <1:64 03/23/2025 9:42 PM EDT [facility] Anaplasma phagocytophilum IgM Ab <1:20 <1:20 03/23/2025 9:42 PM EDT [facility] Anaplasma phagocytophilum Interpretation SEE BELOW 03/23/2025 9:42 PM EDT [facility] Comment:Antibody Not Detecte d Comment SEE BELOW 03/23/2025 9:42 PM EDT [facility] Comment: Anaplasma phagocytophilum is the tick-borne agent causing Human Granulocytic Ehrlichiosis (HGE). HGE is distinct and separate from Human Monocytic Ehrlichiosis (HME), caused by Ehrlichia chaffeensis. Serologic crossreactivity between A. phagocyto- philum and E. chaffeensis is minimal (5-15%). This test was developed and its analytical performance characteristics have been determined by [place]. It has not been cleared or approved by the U.S. Food and Drug Administration. This assay has been validated pursuant to the CLIA regulations and is used for clinical purposes. Test Performed by [facility], [facility], [address] [place], [place] Bi Mckinley M.D., Ph.D., Director of Laboratories , [place] [id number] Blood Venous blood specimen / Unknown Venipuncture / Unknown 03/16/2025 3:17 PM EDT 03/16/2025 3:24 PM EDT us Ana CHAVEZ LAB BLOOD ORDERABLES Final Resu lt [facility] [address] [place] [address] * Light blue tube (03/16/2025 3:17 PM EDT) Pathologist [facility] Extra Tube Hold for add-ons. 03/16/2025 5:01 PM EDT [facility] Comment:Auto resulted. Blood Venous blood specimen / Unknown 03/16/2025 3:17 PM EDT 03/16/2025 3:29 PM EDT us Arun Houston MD LAB BLOOD ORDERABLES Final Res ult Performing Organization Address City/[facility]/ZIP Co de Phone Number [facility] [address] [place] [address], * Ehrlichia chaffeensis antibodies, IgG and IgM (03/16/2025 3:17 PM EDT) Ehrlichia chaffeensis Ab IgG <1:64 <1:64 03/23/2025 9:42 PM EDT [facility] Ehrlichia chaffeensis Ab IgM <1:20 <1:20 03/23/2025 9:42 PM EDT [facility] Interpretation SEE BELOW 03/23/2025 9:42 PM EDT [facility] Comment:Antibody Not Detecte d Comment SEE BELOW 03/23/2025 9:42 PM EDT [facility] Comment: Ehrlichia chaffeenis has been identified as the causative agent of Human Monocytic Ehrlichiosis (HME). Infected individuals produce specific antibodies to E. chaffeensis that can be detected by an immuno- fluorescent antibody (IFA) test. Single IgG IFA titers of 1:64 or greater indicate exposure to E. chaffeensis. A four-fold rise in IgG titers between acute and convalescent samples and/or the presence of IgM antibody against E. chaffeensis suggest recent or current infection. This test was developed and its analytical performance characteristics have been determined by [employer] [place], [place]. It has not been cleared or approved by the U.S. Food and Drug Administration. This assay has been validated pursuant to the CLIA regulations and is used for clinical purposes. Test Performed by [facility], [employer] [facility], [address] [place], [place] Bi Mckinley M.D., Ph.D., Director of Laboratories , CLIA [id number] Blood Venous blood specimen / Unknown Venipuncture / Unknown 03/16/2025 3:17 PM EDT 03/16/2025 3:24 PM EDT us Ana CHAVEZ LAB BLOOD ORDERABLES Final Resu lt [facility] [address] [place] [address] * (ABNORMAL) Drug abuse screen 8a panel, urine (03/16/2025 10:56 AM EDT) Amphetamine Screen, Ur Negative Negative LAB CHEMISTRY METHOD 5 12:06 PM EDT [facility] Comment:Certain OTC medicati ons containing ephedrine, phenylephrine, pseudoephedrine and phenylpropanolamine can cause false positive results. Barbiturate Screen, Ur Negative Negative LAB CHEMISTRY METHOD 5 12:06 PM EDT [facility] Benzodiazepine Screen, Ur Positive(A ) Negative LAB CHEMISTRY METHOD 5 12:06 PM EDT [facility] Cocaine Screen, Ur Negative Negative LAB CHEMISTRY METHOD 5 12:06 PM EDT [facility] Opiate Screen, Ur Positive(A ) Negative LAB CHEMISTRY METHOD 5 12:06 PM EDT [facility] Cannabinoid (THC) Screen, Ur Positive(A ) Negative LAB CHEMISTRY METHOD 5 12:06 PM EDT [facility] Comment:Specimens from patie nts taking pantoprazole sodium (Protonix) have been shown to produce false positive results. Oxycodone Screen, Ur Negative Negative LAB CHEMISTRY METHOD 5 12:06 PM EDT [facility] Fentanyl, Ur Negative Negative LAB CHEMISTRY METHOD 5 12:06 PM EDT [facility] Urine Urine specimen obtained by clean catch procedure / Unknown Non-blood Collection / Unknown 03/16/2025 10:56 AM EDT 03/16/2025 11:15 AM EDT Narrative [facility] - 03/16/2025 12:06 PM EDT Assay cutoffs: Amphetamines 1000 ng/mL Barbiturates 200 ng/mL Benzodiazepines 200 ng/mL Cocaine 300 ng/mL Fentanyl 1 ng/mL Opiates 300 ng/mL Oxycodone 100 ng/mL THC 50 ng/mL Semi-quantitative assay for screening purposes only. Unconfirmed screening result should not be used for non-medical purposes. *ALTERNATE METHOD CONFIRMATION DONE UPON REQUEST ONLY* us Rosette CHAVEZ LAB URINE ORDERABLES Final Res ult [facility] [address] [place] [address], * Arias urine culture tube (03/16/2025 10:55 AM EDT) Extra Tube Hold for add-ons. 03/16/2025 1:01 PM EDT [facility] Comment:Auto resulted. Urine Urine specimen obtained by clean catch procedure / Unknown 03/16/2025 10:55 AM EDT 03/16/2025 11:15 AM EDT [facility] URINE ORDERABLES Final Res ult Performing Organization Address [facility] Co de Phone Number [facility] [address] [place] [address], [place] [phone] * Yellow urine no additive (03/16/2025 10:55 AM EDT) Pathologist [facility] Extra Tube Hold for add-ons. 03/16/2025 1:01 PM EDT [facility] Comment:Auto resulted. Urine Urine specimen obtained by clean catch procedure / Unknown 03/16/2025 10:55 AM EDT 03/16/2025 11:15 AM EDT [facility] URINE ORDERABLES Final Res ult Performing Organization Address [facility] de Phone Number [facility] [address] [place] [address], [place] [phone] * ECG 12 lead (03/16/2025 10:44 AM EDT) Only the most recent of4 resultswithin the time period is included. [facility] Ventricular Rate ECG 87 BPM GEM[facility] Atrial Rate 87 BPM GEMUSE P-R Interval 170 ms GEMUSE QRS Duration 82 ms GEMUSE Q-T Interval 390 ms GEMUSE QTc 469 ms GEMUSE P Wave [place] 35 degrees GEMUSE R [place] 14 degrees GEMUSE T [place] 6 degrees GEMUSE ECG Interpretation Normal sinus rhythm Normal ECG When compared with ECG of 16-MAR-2025 07:52, No significant change was found Confirmed by JORGE POLO ([id number]) on 03/17/2025 10:52:39 AM GEMUSE 03/16/2025 10:4 4 AM EDT 03/17/2025 10:52 AM EDT Arun Houston MD ECG ORDERABLES Final Result Performing Organization Address [facility]/ZIP Co de Phone Number G[facility] * Treponema pallidum antibody with reflex to RPR and particle agglutination (03/16/2025 10:32 AM EDT) Pathologist [facility] T. Pallidum Antibodies Negative Negative LAB CHEMISTRY METHOD 03/16/2025 4:10 PM EDT [facility] Blood Venous blood specimen / Unknown Venipuncture / Unknown 03/16/2025 10:32 AM EDT 03/16/2025 10:47 AM EDT us Ana CHAVEZ LAB BLOOD ORDERABLES Final Resu lt Performing Organization Address [facility] Co de Phone Number [facility] [address] [place] [address], [place] [phone] * Thyroid stimulating hormone with reflex to free t4 and free t3 (03/16/2025 10:32 AM EDT) [facility] TSH 1.68 0.40 - 4.00 mcIU/mL LAB CHEMISTRY METHOD 03/16/2025 3:58 PM EDT [facility] Blood Venous blood specimen / Unknown Venipuncture / Unknown 03/16/2025 10:32 AM EDT 03/16/2025 10:47 AM EDT us Ana CHAVEZ LAB BLOOD ORDERABLES Final Resu lt Performing Organization Address City/[facility]/ZIP Co de Phone Number [facility] [address] [place] [address], [place] [phone] * Vitamin B12 and folate (03/16/2025 10:32 AM EDT) [facility] Vitamin B-12 462 250 - 900 pcg/mL LAB CHEMISTRY METHOD 03/16/2025 5:44 PM EDT [facility] Folate 8.4 2.8 - 17.0 ng/ml LAB CHEMISTRY METHOD 03/16/2025 5:44 PM EDT [facility] Blood Venous blood specimen / Unknown Venipuncture / Unknown 03/16/2025 10:32 AM EDT 03/16/2025 10:47 AM EDT Ana CHAVEZ LAB BLOOD ORDERABLES Final Resu lt Performing Organization Address [facility] de Phone Number [facility] [address] [place] [address], * Borrelia burgdorferi antibody (03/16/2025 10:32 AM EDT) Pathologist [facility] Lyme Ab Negative Negative LAB CHEMISTRY METHOD 03/17/2025 10:39 AM EDT [facility] Comment: No laboratory evidence of infection with B. burgdorferi (Lyme disease). Negative results may occur in patients recently infected (<=14 days) with B. burgdorferi. If recent infection is suspected, repeat testing on a new sample collected in 7- 14 days is recommended. Blood Venous blood specimen / Unknown Venipuncture / Unknown 03/16/2025 10:32 AM EDT 03/16/2025 10:47 AM EDT us Ana CHAVEZ LAB BLOOD ORDERABLES Final Resu lt Performing Organization Address [facility] Co de Phone Number [facility] [address] [place] [address], * Prolactin (03/16/2025 10:32 AM EDT) Only the most recent of2 resultswithin the time period is included. Pathologist [facility] Prolactin 11.40 See Comment ng/mL LAB CHEMISTRY METHOD 03/16/2025 12:28 PM EDT [facility] Comment: Prolactin Reference Ranges (ng/mL) Non 2.2 - 30.3 8.1 - 347.6 Postmenopausal 0.7 - 31.5 Blood Venous blood specimen / Unknown Venipuncture / Unknown 03/16/2025 10:32 AM EDT 03/16/2025 10:47 AM EDT [facility] LAB BLOOD ORDERABLES Final Res ult Performing Organization Address [facility]/ZIP Co de Phone Number [facility] [address] [place] [address], [place] [phone] * (ABNORMAL) Creatine kinase (03/16/2025 10:32 AM EDT) [facility] Total CK 359(H) 22 - 269 unit/L LAB CHEMISTRY METHOD 03/16/2025 11:25 AM EDT [facility] Comment:Hemolysis present Blood Venous blood specimen / Unknown Venipuncture / Unknown 03/16/2025 10:32 AM EDT 03/16/2025 10:47 AM EDT [facility] LAB BLOOD ORDERABLES Final Res ult Performing Organization Address [facility] Co de Phone Number [facility] [address] [place] [address], [place] [phone] * Troponin I high sensitivity (03/16/2025 10:28 AM EDT) Only the most recent of4 resultswithin the time period is included. [facility] High Sensitivity Troponin I 7 <=54 ng/L LAB CHEMISTRY METHOD 03/16/2025 11:19 AM EDT [facility] Blood Venous blood specimen / Unknown Venipuncture / Unknown 03/16/2025 10:28 AM EDT 03/16/2025 10:48 AM EDT Narrative [facility] - 03/16/2025 11:19 AM EDT High levels of biotin in samples may falsely decrease hsTroponin values. Use caution when interpreting hsTroponin results in patients taking biotin who exhibit renal impairment (eGFR <60) or in patients taking more than 20 mg/day of biotin. Arun Houston MD LAB BLOOD ORDERABLES Final Res ult Performing Organization Address [facility]/ZIP Co de Phone Number [facility] [address] [place] [address], [place] [phone] * B-type natriuretic peptide (03/16/2025 10:28 AM EDT) Only the most recent of2 resultswithin the time period is included. BNP 35 <=100 pcg/mL LAB CHEMISTRY METHOD 03/16/2025 11:29 AM EDT [facility] Blood Venous blood specimen / Unknown Venipuncture / Unknown 03/16/2025 10:28 AM EDT 03/16/2025 10:48 AM EDT Arun Houston MD LAB BLOOD ORDERABLES Final Res ult Performing Organization Address [facility] de Phone Number [facility] [address] [place] [address], [place] [phone] * Magnesium (03/16/2025 9:01 AM EDT) Only the most recent of2 resultswithin the time period is included. Pathologist [facility] Magnesium 2.1 1.9 - 2.6 mg/dL LAB CHEMISTRY METHOD 03/16/2025 9:45 AM EDT [facility] Blood Venous blood specimen / Unknown Venipuncture / Unknown 03/16/2025 9:01 AM EDT 03/16/2025 9:13 AM EDT Arun Houston MD LAB BLOOD ORDERABLES Final Res ult Performing Organization Address [facility] Co de Phone Number [facility] [address] [place] [address], [place] [phone] * Lipase (03/16/2025 9:01 AM EDT) Only the most recent of2 resultswithin the time period is included. Pathologist [facility] Lipase 49 13 - 75 unit/L LAB CHEMISTRY METHOD 03/16/2025 9:45 AM EDT [facility] Blood Venous blood specimen / Unknown Venipuncture / Unknown 03/16/2025 9:01 AM EDT 03/16/2025 9:13 AM EDT Arun Houston MD LAB BLOOD ORDERABLES Final Res ult Performing Organization Address City/[facility]/ZIP Co de Phone Number [facility] [address] [place] [address], [place] [phone] * Ethanol (03/16/2025 9:01 AM EDT) [facility] Ethanol Level <3 0 - 10 mg/dL LAB CHEMISTRY METHOD 03/16/2025 12:03 PM EDT [facility] Blood Venous blood specimen / Unknown Venipuncture / Unknown 03/16/2025 9:01 AM EDT 03/16/2025 9:13 AM EDT us Rosette CHAVEZ LAB BLOOD ORDERABLES Final Res ult Performing Organization Address [facility]/ZIP Co de Phone Number [facility] [address] [place] [address], [place] [phone] * (ABNORMAL) Comprehensive metabolic panel (03/16/2025 9:01 AM EDT) Only the most recent of3 resultswithin the time period is included. [facility] Sodium 139 133 - 145 mmol/L LAB CHEMISTRY METHOD 03/16/2025 9:47 AM EDT [facility] Potassium 3.4(L) 3.5 - 5.5 mmol/L LAB CHEMISTRY METHOD 03/16/2025 9:47 AM EDT [facility] Chloride 105 96 - 110 mmol/L LAB CHEMISTRY METHOD 03/16/2025 9:47 AM EDT [facility] CO2 28 21 - 32 mmol/L LAB CHEMISTRY METHOD 03/16/2025 9:47 AM [facility] Anion Gap 6 3 - 11 LAB CHEMISTRY METHOD 03/16/2025 9:47 AM [facility] Glucose 130(H) 70 - 100 mg/dL LAB CHEMISTRY METHOD 03/16/2025 9:47 AM [facility] BUN 8 5 - 25 mg/dL LAB CHEMISTRY METHOD 03/16/2025 9:47 AM [facility] Creatinine 0.74 0.50 - 1.10 mg/dL LAB CHEMISTRY METHOD 03/16/2025 9:47 AM [facility] eGFR 106 >=60 mL/min/1. 73m2 LAB CHEMISTRY METHOD 03/16/2025 9:47 AM [facility] Comment:Calculation based on the Chronic Kidney Disease Epidemiology Collaboration (CKD-EPI) equation refit without adjustment for race. BUN/Creatinine Ratio 10.8 LAB CHEMISTRY METHOD 03/16/2025 9:47 AM [facility] Calcium 8.8 8.5 - 10.5 mg/dL LAB CHEMISTRY METHOD 03/16/2025 9:47 AM [facility] AST (SGOT) 20 10 - 42 unit/L LAB CHEMISTRY METHOD 03/16/2025 9:47 AM [facility] ALT (SGPT) 18 10 - 60 unit/L LAB CHEMISTRY METHOD 03/16/2025 9:47 AM [facility] Alkaline Phosphatase 72 42 - 121 unit/L LAB CHEMISTRY METHOD 03/16/2025 9:47 AM [facility] Total Protein 6.7 6.0 - 8.0 g/dL LAB CHEMISTRY METHOD 03/16/2025 9:47 AM [facility] Albumin 3.6 3.2 - 5.0 g/dL LAB CHEMISTRY METHOD 03/16/2025 9:47 AM [facility] Total Bilirubin 1.1 0.0 - 1.4 mg/dL LAB CHEMISTRY METHOD 03/16/2025 9:47 AM EDT [facility] Blood Venous blood specimen / Unknown Venipuncture / Unknown 03/16/2025 9:01 AM EDT 03/16/2025 9:13 AM EDT us Arun Houston MD LAB BLOOD ORDERABLES Final Res ult [facility] [address] [place] [address], [place] [phone] * ECG-Annotated (03/16/2025) us Provider Onbase ECG ORDERABLES Final Result * MR Brain wo Contrast (03/15/2025 5:06 PM EDT) Anatomical Region Laterality Modality Head and Neck Magnetic Resonan ce 03/15/2025 5:08 PM EDT Impressions 03/15/2025 5:19 PM EDT No acute findings. -------- FINAL REPORT -------- Dictated By: Chi Nick Dictated Date: 03/15/2025 17:08 ET Assigned Physician: Chi Nick Reviewed and Electronically Signed By: Chi Nick Signed Date: 03/15/2025 17:19 ET Workstation ID: [id number] Transcribed By: Self Edit Transcribed Date: 03/15/2025 17:08 ET Narrative 03/15/2025 5:19 PM EDT HISTORY: Seizure, abnormal neuro exam. TECHNIQUE: Routine MRI of the brain without contrast. COMPARISON: None available. FINDINGS: No acute territorial infarct, mass effect, or intracranial hemorrhage. No significant white matter disease No hydrocephalus. Mild to moderate thickening of the paranasal sinuses. No calvarial fracture. Orbits unremarkable. Procedure Note Chi Nick MD - 03/15/2025 HISTORY: Seizure, abnormal neuro exam. TECHNIQUE: Routine MRI of the brain without contrast. COMPARISON: None available. FINDINGS: No acute territorial infarct, mass effect, or intracranial hemorrhage. No significant white matter disease No hydrocephalus. Mild to moderate thickening of the paranasal sinuses. No calvarial fracture. Orbits unremarkable. IMPRESSION: No acute findings. -------- FINAL REPORT -------- Dictated By: Chi Nick Dictated Date: 03/15/2025 17:08 ET Assigned Physician: Chi Nick Reviewed and Electronically Signed By: Chi Nick Signed Date: 03/15/2025 17:19 ET Workstation ID: [id number] Transcribed By: Self Edit Transcribed Date: 03/15/2025 17:08 ET us Arun Houston MD IMG MRI PROCEDURES Final Resul t * CT Chest wo Contrast (03/15/2025 11:14 AM EDT) Anatomical Region Laterality Modality Body Computed Tomogra phy 03/15/2025 11:5 0 AM EDT Impressions 03/15/2025 11:56 AM EDT Impression: No acute process identified in the thorax. Telerad PA ([id number]) -------- FINAL REPORT -------- Dictated By: Adriana Andrews Dictated Date: 03/15/2025 11:50 ET Assigned Physician: Adriana Andrews Reviewed and Electronically Signed By: Adriana Andrews Signed Date: 03/15/2025 11:56 ET Workstation ID: [id number] Transcribed By: Self Edit Transcribed Date: 03/15/2025 11:50 ET Narrative 03/15/2025 11:56 AM EDT History: Chest pain. Dyspnea. Technique: Helical volumetric imaging of the thorax was performed without IV contrast. DLP: 1198.37 mGy/cm Ember VCT Iterative reconstruction technique Findings: The trachea and central bronchial tree are patent. No airspace consolidations or suspicious pulmonary nodules are seen. No pleural or pericardial effusions are identified. The heart is normal in size. The thoracic aorta is normal in caliber. Minimal soft tissue attenuation within the anterior mediastinum is interposed with fat and is compatible with residual thymus in a patient of this age. No mediastinal lymphadenopathy is seen. Evaluation of the goyo is limited in the absence of IV contrast. Borderline to mildly enlarged supraclavicular lymph nodes are seen bilaterally, nonspecific. A small portion of the upper abdomen included on the lowest images through the thorax is remarkable for gastric bypass surgical sequela, partially imaged. Cervical spine anterior fusion and discectomy sequela are partially imaged. Procedure Note Adriana Andrews MD - 03/15/2025 History: Chest pain. Dyspnea. Technique: Helical volumetric imaging of the thorax was performed withoutIV contrast. DLP: 1198.37 mGy/cm [employer] Iterative reconstruction technique Findings: The trachea and central bronchial tree are patent. No airspaceconsolidations or suspicious pulmonary nodules are seen. No pleural or pericardial effusions are identified. The heart is normal in size. The thoracic aorta is normal in caliber.Minimal soft tissue attenuation within the anterior mediastinum isinterposed with fat and is compatible with residual thymus in a patient ofthis age. No mediastinal lymphadenopathy is seen. Evaluation of the hilais limited in the absence of IV contrast. Borderline to mildly enlargedsupraclavicular lymph nodes are seen bilaterally, nonspecific. A small portion of the upper abdomen included on the lowest images throughthe thorax is remarkable for gastric bypass surgical sequela, partiallyimaged. Cervical spine anterior fusion and discectomy sequela are partiallyimaged. IMPRESSION: Impression: No acute process identified in the thorax. Telerad KATHY ([id number]) -------- FINAL REPORT -------- Dictated By: Adriana Andrews Dictated Date: 03/15/2025 11:50 ET Assigned Physician: Adriana Andrews Reviewed and Electronically Signed By: Adriana Andrews Signed Date: 03/15/2025 11:56 ET Workstation ID: [id number] Transcribed By: Self Edit Transcribed Date: 03/15/2025 11:50 ET Norbert Santoyo MD IMG CT PROCEDURES Final Result * POC glucose manually resulted (03/15/2025 8:42 AM EDT) Glucose POC 104 70 - 110 mg/dL Blood Capillary blood specimen / Unknown 03/15/2025 8:42 AM EDT us Norbert Santoyo MD POINT OF CARE TEST ENTER/EDIT O RDERABLES Final Result * (ABNORMAL) POCT Glucose, blood (03/15/2025 8:41 AM EDT) Glucose POCT 104(H) 70 - 100 mg/dL 03/15/2025 8:41 AM EDT [facility] Blood Capillary blood specimen / Unknown 03/15/2025 8:41 AM EDT 03/15/2025 8:42 AM EDT us Norbert Santoyo MD LAB POINT OF CARE TE ST DOCKED DEVICE UNSOLICITED RESULTS Final Result [facility] [address] [place] [address], [place] [phone] * XR Chest 1 View (03/15/2025 8:30 AM EDT) Anatomical Region Laterality Modality Body Radiographic Barbra ging 03/15/2025 9:15 AM EDT Impressions 03/15/2025 9:15 AM EDT Impression: No active pulmonary process identified. Telerad KATHY ([id number]) -------- FINAL REPORT -------- Dictated By: Adriana Andrews Dictated Date: 03/15/2025 09:15 ET Assigned Physician: Adriana Andrews Reviewed and Electronically Signed By: Adriana Andrews Signed Date: 03/15/2025 09:15 ET Workstation ID: [id number] Transcribed By: Self Edit Transcribed Date: 03/15/2025 09:15 ET Narrative 03/15/2025 9:15 AM EDT History: Chest pain. Stroke. Comparison: 12/20/21 Findings: Normal AP upright chest at 8:25 AM. This is a poor inspiration. The cardiac silhouette is within normal limits for size allowing for technique. Hilar contours and pulmonary vascularity appear normal. The lungs are clear. The costophrenic angles are sharp. Cervical spine surgical hardware is new since the previous study. Procedure Note Adriana Andrews MD - 03/15/2025 History: Chest pain. Stroke. Comparison: 12/20/21 Findings: Normal AP upright chest at 8:25 AM. This is a poor inspiration. Thecardiac silhouette is within normal limits for size allowing fortechnique. Hilar contours and pulmonary vascularity appear normal. Thelungs are clear. The costophrenic angles are sharp. Cervical spine surgical hardware is new since the previous study. IMPRESSION: Impression: No active pulmonary process identified. Telerad PA ([id number]) -------- FINAL REPORT -------- Dictated By: Adriana Andrews Dictated Date: 03/15/2025 09:15 ET Assigned Physician: Adriana Andrews Reviewed and Electronically Signed By: Adriana Andrews Signed Date: 03/15/2025 09:15 ET Workstation ID: [id number] Transcribed By: Self Edit Transcribed Date: 03/15/2025 09:15 ET us Norbert Santoyo MD IMG XR PROCEDURES Final Result * Activated partial thromboplastin time (03/15/2025 8:19 AM EDT) aPTT 33.6 24.1 - 39.3 sec LAB COAGULATION METHOD 03/15/2025 9:42 AM EDT [facility] Blood Venous blood specimen / Unknown Venipuncture / Unknown 03/15/2025 8:19 AM EDT 03/15/2025 9:08 AM EDT us Norbert Santoyo MD LAB BLOOD ORDERABLES Final Resu lt [facility] [address] [place] [address], [place] [phone] * (ABNORMAL) Prothrombin time with INR (03/15/2025 8:19 AM EDT) Protime 10.5(L) 10.6 - 13.9 sec LAB COAGULATION METHOD 03/15/2025 9:42 AM EDT [facility] INR 0.8 LAB COAGULATION METHOD 03/15/2025 9:42 AM EDT [facility] Blood Venous blood specimen / Unknown Venipuncture / Unknown 03/15/2025 8:19 AM EDT 03/15/2025 9:08 AM EDT us Norbert Santoyo MD LAB BLOOD ORDERABLES Final Resu lt [facility] [address] [place] [address], * CT Angio Head/Neck Stroke wo and/or w Contrast (03/15/2025 8:10 AM EDT) Anatomical Region Laterality Modality Head and Neck Computed Tomogra phy 03/15/2025 8:29 AM EDT Impressions 03/15/2025 8:37 AM EDT No significant stenosis or occlusion of any of the major arteries of the neck and [place]. -------- FINAL REPORT -------- Dictated By: Dagoberto Del Rosario Dictated Date: 03/15/2025 08:29 ET Assigned Physician: Dagoberto Del Rosario Reviewed and Electronically Signed By: Dagoberto Del Rosario Signed Date: 03/15/2025 08:37 ET Workstation ID: [id number] Transcribed By: Self Edit Transcribed Date: 03/15/2025 08:29 ET Narrative 03/15/2025 8:37 AM EDT PROCEDURE: CT angiogram of the neck and [place] of [place] a7d delayed postcontrast CT of the brain. HISTORY: Neuro deficit, acute, stroke suspected. COMPARISON: TECHNIQUE: CT angiogram of the neck and [place] with multiplanar reformats. Delayed postcontrast images of the brain were also obtained. IV contrast dose: 90 mL ISOVUE-370. Dose length product: 2634 mGy-cm. FINDINGS: BRAIN: Delayed postcontrast images demonstrate no area of hypoattenuation or loss of arias-white differentiation to suggest an infarct. A small partially empty sella is incidentally noted. CTA: Bovine arch configuration. Subclavian arteries are partially obscured by streak artifact. No visible subclavian stenosis. Small amount of hard and soft plaque at the left carotid bulb without stenosis. No carotid stenosis. Codominant vertebral arteries. No vertebral stenosis. The basilar artery and science teacher are patent. Small caliber bilateral posterior communicating arteries. The petrous and cavernous segments of the internal carotid arteries are patent. Small amount of calcified plaque in the right carotid siphon without associated stenosis. The anterior and middle cerebral arteries are widely patent. No aneurysm. No findings to suggest a vascular malformation. Patent dural venous sinuses. ORBITS: Normal. SINUSES/MASTOIDS: Complete opacification of the right frontal sinus and frontoethmoidal recess. Near complete opacification of the left frontoethmoidal recess. Moderate diffuse patchy opacification of the ethmoid air cells. Circumferential mucosal thickening in the maxillary antra, moderate on the left and mild on the right. Minimal mucosal thickening in the anterior left sphenoid sinus. CALVARIUM: Normal. OTHER: ACDF C5-C7. Procedure Note Dagoberto Del Rosario MD - 03/15/2025 PROCEDURE: CT angiogram of the neck and [place] a7d delayedpostcontrast CT of the brain. HISTORY: Neuro deficit, acute, stroke suspected. COMPARISON: TECHNIQUE: CT angiogram of the neck and [place] with multiplanarreformats. Delayed postcontrast images of the brain were also obtained. IV contrast dose: 90 mL ISOVUE-370. Dose length product: 2634 mGy-cm. FINDINGS: BRAIN: Delayed postcontrast images demonstrate no area of hypoattenuationor loss of arias-white differentiation to suggest an infarct. A smallpartially empty sella is incidentally noted. CTA: Bovine arch configuration. Subclavian arteries are partiallyobscured by streak artifact. No visible subclavian stenosis. Smallamount of hard and soft plaque at the left carotid bulb without stenosis.No carotid stenosis. Codominant vertebral arteries. No vertebral stenosis. The basilar artery and science teacher are patent. Small caliber bilateral posteriorcommunicating arteries. The petrous and cavernous segments of the internal carotid arteries arepatent. Small amount of calcified plaque in the right carotid siphonwithout associated stenosis. The anterior and middle cerebral arteries are widely patent. No aneurysm. No findings to suggest a vascular malformation. Patentdural venous sinuses. ORBITS: Normal. SINUSES/MASTOIDS: Complete opacification of the right frontal sinus andfrontoethmoidal recess. Near complete opacification of the leftfrontoethmoidal recess. Moderate diffuse patchy opacification of theethmoid air cells. Circumferential mucosal thickening in the maxillaryantra, moderate on the left and mild on the right. Minimal mucosalthickening in the anterior left sphenoid sinus. CALVARIUM: Normal. OTHER: ACDF C5-C7. IMPRESSION: No significant stenosis or occlusion of any of the major arteries of theneck and [place]. -------- FINAL REPORT -------- Dictated By: Dagoberto Del Rosario Dictated Date: 03/15/2025 08:29 ET Assigned Physician: Dagoberto Del Rosario Reviewed and Electronically Signed By: Dagoberto Del Rosario Signed Date: 03/15/2025 08:37 ET Workstation ID: [id number] Transcribed By: Self Edit Transcribed Date: 03/15/2025 08:29 ET Norbert Santoyo MD IMG CT PROCEDURES Final Result * CT Head Stroke wo Contrast (03/15/2025 8:02 AM EDT) Anatomical Region Laterality Modality Head and Neck Computed Tomogra phy 03/15/2025 8:07 AM EDT Impressions 03/15/2025 8:11 AM EDT Impression: 1. No acute hemorrhage or intracranial mass effect. 2. Pansinusitis. The findings were conveyed to the referring provider at the time of interpretation, by secure text message ([employer]), on 03/15/25. Teleayana CHAVEZ ([id number]) -------- FINAL REPORT -------- Dictated By: Adriana Andrews Dictated Date: 03/15/2025 08:07 ET Assigned Physician: Adriana Andrews Reviewed and Electronically Signed By: Adriana Andrews Signed Date: 03/15/2025 08:11 ET Workstation ID: [id number] Transcribed By: Self Edit Transcribed Date: 03/15/2025 08:07 ET Narrative 03/15/2025 8:11 AM EDT History: Stroke. Left-sided weakness and numbness. Last known well time 10:30 PM yesterday. Comparison: 12/25/23, brain MRI 12/25/23 Technique: Contiguous axial images were obtained at 2.5 mm intervals through the posterior fossa and at 5 mm intervals through the remainder of the brain without intravenous contrast. DLP: 808.85 mGy/cm [employer] VCT Iterative reconstruction technique Findings: The ventricular system is normal in size and configuration. Arias-white differentiation is maintained. No abnormal intra- or extra-axial masses or fluid collections are seen. There is no evidence of acute intracranial hemorrhage. Mucoperiosteal thickening is seen within the paranasal sinuses, with near complete opacification of the right frontal and bilateral ethmoid sinuses, consistent with sinusitis. The mastoids are well pneumatized. The calvarium is intact. Procedure Note Adriana Andrews MD - 03/15/2025 History: Stroke. Left-sided weakness and numbness. Last known well time10:30 PM yesterday. Comparison: 12/25/23, brain MRI 12/25/23 Technique: Contiguous axial images were obtained at 2.5 mm intervalsthrough the posterior fossa and at 5 mm intervals through the remainder ofthe brain without intravenous contrast. DLP: 808.85 mGy/cm [employer] VCT Iterative reconstruction technique Findings: The ventricular system is normal in size and configuration. Arias- whitedifferentiation is maintained. No abnormal intra- or extra-axial masses orfluid collections are seen. There is no evidence of acute intracranialhemorrhage. Mucoperiosteal thickening is seen within the paranasal sinuses, with nearcomplete opacification of the right frontal and bilateral ethmoid sinuses,consistent with sinusitis. The mastoids are well pneumatized. Thecalvarium is intact. IMPRESSION: Impression: 1. No acute hemorrhage or intracranial mass effect. 2. Pansinusitis. The findings were conveyed to the referring provider at the time ofinterpretation, by secure text message ([employer]), on 03/15/25. Telerad KATHY ([id number]) -------- FINAL REPORT -------- Dictated By: Adriana Andrews Dictated Date: 03/15/2025 08:07 ET Assigned Physician: Adriana Andrews Reviewed and Electronically Signed By: Adriana Andrews Signed Date: 03/15/2025 08:11 ET Workstation ID: [id number] Transcribed By: Self Edit Transcribed Date: 03/15/2025 08:07 ET us Norbert Santoyo MD IMG CT PROCEDURES Final Result * (ABNORMAL) Creatine kinase and CKMB (03/15/2025 7:49 AM EDT) [facility] Total CK 297(H) 22 - 269 unit/L LAB CHEMISTRY METHOD 03/15/2025 1:00 PM EDT [facility] CK-MB 1.5 1.0 - 3.6 ng/mL LAB CHEMISTRY METHOD 03/15/2025 1:00 PM EDT [facility] CK-MB Index 0.0 0.0 - 5.0 LAB CHEMISTRY METHOD 03/15/2025 1:00 PM EDT [facility] Blood Venous blood specimen / Unknown Venipuncture / Unknown 03/15/2025 7:49 AM EDT 03/15/2025 8:25 AM EDT us Arun Houston MD LAB BLOOD ORDERABLES Final Res ult [facility] [address] [place] [address], [place] [phone] * Interferon gamma interpretation (03/03/2025 8:20 AM EDT) [facility] Quantiferon Plus Interpretation Negative Negative LAB CHEMISTRY METHOD 03/04/2025 10:23 AM EDT [facility] Blood Venous blood specimen / Unknown Venipuncture / Unknown 03/03/2025 8:20 AM EDT 03/03/2025 8:20 AM EDT us Joanne Smith [employer] LAB BLOOD ORDERABLES Final Res ult [facility] [address] [place] [address], [place] [phone] * Interferon gamma antigen 2 (03/03/2025 8:20 AM EDT) Blood Venous blood specimen / Unknown Venipuncture / Unknown 03/03/2025 8:20 AM EDT 03/03/2025 8:20 AM EDT us Joanne Smith [employer] LAB BLOOD ORDERABLES Final Res ult Performing Organization Address City/[facility]/ZIP Co de Phone Number [facility] [address] [place] [address], [place] [phone] * Interferon gamma antigen 1 (03/03/2025 8:20 AM EDT) Blood Venous blood specimen / Unknown Venipuncture / Unknown 03/03/2025 8:20 AM EDT 03/03/2025 8:20 AM EDT Joanne Smith [employer] LAB BLOOD ORDERABLES Final Res ult Performing Organization Address City/[facility]/ZIP Co de Phone Number [facility] [address] [place] [address], [place] [phone] * Interferon gamma mitogen (03/03/2025 8:20 AM EDT) Blood Venous blood specimen / Unknown Venipuncture / Unknown 03/03/2025 8:20 AM EDT 03/03/2025 8:20 AM EDT us Joanne Smith [employer] LAB BLOOD ORDERABLES Final Res ult [facility] [address] [place] [address], * Interferon gamma NIL (03/03/2025 8:20 AM EDT) Blood Venous blood specimen / Unknown Venipuncture / Unknown 03/03/2025 8:20 AM EDT 03/03/2025 8:20 AM EDT Joanne Smith NP LAB BLOOD ORDERABLES Final Res ult Performing Organization Address [facility] Co de Phone Number [facility] [address] [place] [address], [place] [phone] * Iron and TIBC (03/03/2025 8:20 AM EDT) Iron 70 40 - 150 mcg/dL LAB CHEMISTRY METHOD 03/03/2025 10:45 AM EDT [facility] TIBC 407 250 - 450 mcg/dL LAB CHEMISTRY METHOD 03/03/2025 10:45 AM EDT [facility] Iron Saturation 17 15 - 50 % LAB CHEMISTRY METHOD 03/03/2025 10:45 AM EDT [facility] Blood Venous blood specimen / Unknown Venipuncture / Unknown 03/03/2025 8:20 AM EDT 03/03/2025 8:20 AM EDT Gemma Peters MD LAB BLOOD ORDERABLES Fi nal Result Performing Organization Address [facility] de Phone Number [facility] [address] [place] [address], [place] [phone] * Zinc (03/03/2025 8:20 AM EDT) Zinc 79 60 - 130 ug/dL 03/05/2025 1:21 PM EDT [facility] Comment: Elevated results may be due to sample collected in a non-certified trace element-free tube. This test was developed and the performance characteristics determined by [facility]. It has not been cleared or approved by the FDA. The laboratory is regulated under CLIA as qualified to perform high-complexity testing. This test is used for patient testing purposes. It should not be regarded as investigational or for research. Test performed at [facility], [address] [place] [address] Lindsey Reed MD, PhD - Refrigeration Engineering Teacher Blood Venous blood specimen / Unknown Venipuncture / Unknown 03/03/2025 8:20 AM EDT 03/03/2025 8:20 AM EDT Gemma Peters MD LAB BLOOD ORDERABLES Fi nal Result Performing Organization Address [facility] Co de Phone Number [facility] [address] [place] [address] * Vitamin A (03/03/2025 8:20 AM EDT) Vitamin A 43 38 - 106 ug/dL 03/08/2025 6:16 AM EDT [facility] Comment: This test was developed and the performance characteristics determined by [facility]. It has not been cleared or approved by the FDA. The laboratory is regulated under CLIA as qualified to perform high-complexity testing. This test is used for patient testing purposes. It should not be regarded as investigational or for research. Test performed at [facility], [address] [place] [address] Lindsey Reed MD, PhD - Refrigeration Engineering Teacher Blood Venous blood specimen / Unknown Venipuncture / Unknown 03/03/2025 8:20 AM EDT 03/03/2025 8:20 AM EDT Gemma Peters MD LAB BLOOD ORDERABLES Fi nal Result Performing Organization Address [facility]/ZIP Co de Phone Number [facility] [address] [place] [address] * Selenium serum (03/03/2025 8:20 AM EDT) Selenium 140 63 - 160 mcg/L 03/06/2025 11:37 PM EDT [facility] Comment: This test was developed and its analytical performance characteristics have been determined by [employer] [place], [place]. It has not been cleared or approved by the U.S. Food and Drug Administration. This assay has been validated pursuant to the CLIA regulations and is used for clinical purposes. Test Performed by [facility], [employer] [facility], [address] [place] [address] Bi Mckinley M.D., Ph.D., Director of Laboratories , CLIA [id number] Blood Venous blood specimen / Unknown Venipuncture / Unknown 03/03/2025 8:20 AM EDT 03/03/2025 8:20 AM EDT Gemma Peters MD LAB BLOOD ORDERABLES Fi nal Result [facility] [address] [place] [address] * (ABNORMAL) Vitamin D 25 hydroxy (03/03/2025 8:20 AM EDT) Vit D, 25-Hydroxy 6.1(L) 30.0 - 80.0 ng/mL LAB CHEMISTRY METHOD 03/03/2025 11:38 AM EDT [facility] Blood Venous blood specimen / Unknown Venipuncture / Unknown 03/03/2025 8:20 AM EDT 03/03/2025 8:20 AM EDT Gemma Peters MD LAB BLOOD ORDERABLES Fi nal Result [facility] [address] [place] [address], * Vitamin B1 (03/03/2025 8:20 AM EDT) Vitamin B1 Whole Blood 46 38 - 122 ug/L 03/09/2025 7:14 AM EDT [facility] Comment: This test was developed and the performance characteristics determined by [facility]. It has not been cleared or approved by the FDA. The laboratory is regulated under CLIA as qualified to perform high-complexity testing. This test is used for patient testing purposes. It should not be regarded as investigational or for research. Test performed at [facility], [address] [place] [address] Lindsey Reed MD, PhD - Refrigeration Engineering Teacher Blood Venous blood specimen / Unknown Venipuncture / Unknown 03/03/2025 8:20 AM EDT 03/03/2025 8:20 AM EDT Gemma Peters MD LAB BLOOD ORDERABLES Fi nal Result [facility] [address] [place] [address] * (ABNORMAL) Vitamin B6 (03/03/2025 8:20 AM EDT) [facility] Vitamin B6 (Pyridoxine) Level 3(L) 5 - 50 ug/L 03/09/2025 8:50 AM EDT [facility] Comment: This test was developed and the performance characteristics determined by [facility]. It has not been cleared or approved by the FDA. The laboratory is regulated under CLIA as qualified to perform high-complexity testing. This test is used for patient testing purposes. It should not be regarded as investigational or for research. Test performed at [facility], [address] [facility], [place] [address] Lindsey Reed MD, PhD - Refrigeration Engineering Teacher Blood Venous blood specimen / Unknown Venipuncture / Unknown 03/03/2025 8:20 AM EDT 03/03/2025 8:20 AM EDT us Gemma Peters MD LAB BLOOD ORDERABLES Fi nal Result [facility] [address] [place] [address] * (ABNORMAL) Parathyroid hormone intact (03/03/2025 8:20 AM EDT) PTH 91.0(H) 18.5 - 88.0 pcg/mL LAB CHEMISTRY METHOD 03/03/2025 11:32 AM EDT [facility] Blood Venous blood specimen / Unknown Venipuncture / Unknown 03/03/2025 8:20 AM EDT 03/03/2025 8:20 AM EDT us Gemma Peters MD LAB BLOOD ORDERABLES Fi nal Result [facility] [address] [place] [address], [place] [phone] * Folate (03/03/2025 8:20 AM EDT) Pathologist [facility] Folate 5.2 2.8 - 17.0 ng/ml LAB CHEMISTRY METHOD 03/03/2025 10:45 AM EDT [facility] Blood Venous blood specimen / Unknown Venipuncture / Unknown 03/03/2025 8:20 AM EDT 03/03/2025 8:20 AM EDT us Gemma Peters MD LAB BLOOD ORDERABLES Fi nal Result [facility] [address] [place] [address], [place] [phone] * Vitamin B12 (03/03/2025 8:20 AM EDT) Vitamin B-12 467 250 - 900 pcg/mL LAB CHEMISTRY METHOD 03/03/2025 10:45 AM EDT [facility] Blood Venous blood specimen / Unknown Venipuncture / Unknown 03/03/2025 8:20 AM EDT 03/03/2025 8:20 AM EDT Gemma Peters MD LAB BLOOD ORDERABLES Fi nal Result [facility] [address] [place] [address], * Depression Screening (05/06/2024) Depression Screening ABSTRACTED Historical Provider HEALTH MAINTENANCE Final Result * Hemoglobin A1c (01/24/2024) Pathologist [facility] Hemoglobin A1C 5.1 <=6.5 % Blood Venous blood specimen / Unknown Result [facility] Historical Provider LAB BLOOD ORDERABLES Evelia l Result * Urine Albumin Creatinine Ratio (08/01/2022) Pathologist [facility] Urine Albumin Creatinine Ratio ABSTRACTED Result [facility] Historical Provider HEALTH MAINTENANCE Final Result * (ABNORMAL) Lipid panel (08/01/2022) LDL/HDL Ratio 4 0 - 4 Triglycerides 74 0 - 150 mg/dL Cholesterol 174 0 - 200 mg/dL HDL 48 >=40 mg/dL LDL Cholesterol 112(A) 0 - 100 mg/dL Blood Venous blood specimen / Unknown Result [facility] Historical Provider LAB BLOOD ORDERABLES Evelia l Result * Pap Smear (03/20/2019) Pap smear NO INTERPRETATION , ABSTRACTED Historical Provider HEALTH MAINTENANCE Final Result from Last 3 Months or Most Recently Relevant to Health Maintenance Insurance [facility] Advance Directives * Full Code - Default (Latest Code Status on File) Date Activated Date Inactivated Comments 03/16/2025 1:42 PM 03/17/2025 6:18 PM This is orde r is used when code status has not been discussed with the patient, or code status is otherwise unknown/unconfirmed To update the patient's code status, place a code status order. Do not modify or discontinue any currently active code status orders. * Full Code - Default Date Activated Date Inactivated Comments 03/15/2025 12:24 PM 03/16/2025 1:54 AM This is ord er is used when code status has not been discussed with the patient, or code status is otherwise unknown/unconfirmed To update the patient's code status, place a code status order. Do not modify or discontinue any currently active code status orders. Care Teams National Sales Consultant Relationship Specialty Start Date End Date Yusra Nick MD [address] [place] [id number] PCP - General Internal Medicine 04/10/21
--- OUTSIDE RECORDS SUMMARY | 2025-05-17 16:56 | XMS_ITS | Encounter Summary ---
Author Organization [facility] [place] [address] Care Team Providers Care Powder Cutting Operator Name Role Phone Yusra Nick MD Primary Care Provider [phone] Encounter Details Date Type Department Care Team (Late Contact Info) Description 05/17/2025 Telephone Adult Medicine [address] [phone] NimeshGlen mcqueen LPN Social History Tobacco Use Types Packs/Day Years Used Date Smoking Tobacco: Every Day Cigarettes 0.4 21.1 Started: 2002; Last attempted to quit: 01/22/2024 Smokeless Tobacco: Never Alcohol Use Standard Drinks/Week Comments Yes 0 (1 standard drink = 0.6 oz pur e alcohol) Social Comments No Sex and Gender Information Value Date Recorded Sex Assigned at Not on file Legal Sex Female 7:39 AM EST Gender Identity Not on file Sexual Orientation Not on file documented as of this encounter Plan of Treatment Upcoming Encounters Date Type Department Care Team (Late Contact Info) Description 05/28/2025 10:45 AM EDT Office Visit Bariatric Surgery - [place] [facility] [address] [place] [address] Gemma Peters MD [address] [place] [address] 07/06/2025 9:00 AM EDT Consult [facility] [place] - [place] [facility] [address] [place] [address] Alejandro Wagner MD [address] [place] [address] 07/12/2025 8:30 AM EDT Office Visit Adult Medicine - [address] [phone] Joanne Smith NP [address] [place], [place] documented as of this encounter Visit Diagnoses Not on filedocumented in this encounter Care Teams Powder Cutting Operator Relationship Specialty Start Date End Date Yusra Nick MD [address] [place] [address] PCP - General Internal Medicine 04/10/21 documented as of this encounter
--- OUTSIDE RECORDS SUMMARY | 2025-05-17 16:56 | XMS_ITS | Clinical Summary ---
Author Organization [facility] Address [address] [place] [address] Care Team Providers Care Process Design Engineer Name Role Phone Carl Nick MD Primary Care Provider Unava ilable Allergies Active Allergy Reactions Criticality Noted Date Comments Lisinopril Unknown/Patient and Family Unable to Define Medium 12/25/2023 Paroxetine Unknown/Patient and Family Unable to Define Medium 12/25/2023 Medications labetalol (NORMODYNE) 100 MG tablet Take 1 tablet (100 mg total) by mouth 2 (two) times a day. 60 tablet 12/25/2023 Active Social History Tobacco Use Types Packs/Day Years Used Date Smoking Tobacco: Never Assessed Comments No Sex and Gender Information Value Date Recorded Sex Assigned at Female 12/25/2023 12:23 PM EDT Legal Sex Female 9:54 AM EDT Gender Identity Female 12/25/2023 12:23 PM EDT Sexual Orientation Heterosexual (straight) 12/24 12:23 PM EDT Last Filed Vital Signs Vital Sign Reading Time Taken Comments Blood Pressure 144/105 12/25/2023 2:53 PM EDT Pulse 79 12/25/2023 2:53 PM EDT Temperature 37.1 C (98.7 F) 12/25/2023 2:53 PM EDT Respiratory Rate 18 12/25/2023 2:53 PM EDT Oxygen Saturation 99% 12/25/2023 2:53 PM EDT Inhaled Oxygen Concentration - - Weight 80.7 kg (177 lb 14.6 oz) 04/03/2 024 10:17 AM EDT Height 162.6 cm (5' 4 ) 12/25/2023 10:1 7 AM EDT Body Mass Index 30.54 12/25/2023 10:17 AM EDT Plan of Treatment Health Maintenance Due Date Last Done Comments Hepatitis C Virus Screening 1986 HIV Screening 12/22/1999 DTaP/Tdap/Td Vaccines (1 - Tdap) 2005 Hepatitis B Vaccines (1 of 3 - 19+ 3-dose series) 2005 Pneumococcal Vaccine: Pediat ervin (0-5 Years) and At-Risk Patients (6 to 49 Years) (1 of 2 - PCV) 2005 Pap Smear (Ages 21-65) 12/22/2007 HPV Vaccines (1 - 3-dose SCDM series) 2013 COVID-19 Vaccine ( season) 2024 09/08/2021, 12/30/2020, 12/09/2020 Influenza Vaccine 04/23/2025 06/27/2021, 07/28/2020 Insurance Care Teams Process Design Engineer Relationship Specialty Start Date End Date Carl Nick MD PCP - General 12/25/23
--- OUTSIDE RECORDS SUMMARY | 2025-05-17 16:56 | XMS_ITS ---
Author Name [facility] Organization Unknown Encounters Encounter Type Encounter Reason Primary Diagnosis Location Date Emergency Hypertensive crisis, unspecified Hypertensive crisis, unspecified [facility] 12/25/2023 Care Team Organization Name Specialty Phone Email Start Date End Da te [facility] 12/25/2023 [facility] 12/25/2023 12/09/2024 [facility] 12/25/2023 [facility] Carl [facility] 07/31/2022 05/11/2024
--- OUTSIDE RECORDS SUMMARY | 2025-05-17 16:56 | XMS_ITS | Clinical Summary ---
Author Organization [facility] Address [address] [place] [phone] Phone Care Team Providers Care Low Pressure Firer Name Role Phone Carl Nick MD Primary Care Provider + Allergies Active Allergy Reactions Criticality Noted Date Comments Lisinopril Other (see comments) Medium 04/03/2019 Angioedema Paroxetine Other (see comments) Medium 06/10/2014 sleeplessness Sleeplessness, restlessness Medications sertraline (ZOLOFT) 50 MG tablet TAKE 1/2 TABLET BY MOUTH DAILY FOR 1 WEEK, THEN START TAKING 1 TABLET DAILY 4 Active ondansetron ODT (ZOFRAN-ODT) 4 MG dispersible tablet 4 Active losartan (COZAAR) 100 MG tablet Take 100 mg by mouth 4 Active Levonorgestrel 20 MCG/DAY intrauterine device 1 each by Intrauterine route Active labetalol (NORMODYNE) 200 MG tablet TAKE 1 TABLET BY MOUTH 2 TIMES DAILY FOR 180 DAYS. 4 Active labetalol (NORMODYNE) 100 MG tablet Take 100 mg by mouth in the morning and 100 mg in the evening. 4 Active hydrALAZINE 25 MG tablet Take 1 tablet by mouth in the morning and 1 tablet at noon and 1 tablet in the evening. 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 Ms. Jain has seen some improvement in her preop [...] x-rays at 1 year. All questions answered. History of bariatric surgical procedure 01/17/20 24 Leukocytosis 09/07/2022 Vitamin D deficiency 09/07/2022 Hypercholesterolemia 08/03/2022 Gastro-esophageal reflux disease without esophag itis 03/02/2022 Steatosis of liver 04/23/2021 Ventricular bigeminy 04/03/2021 Overview (09/01/2024): Ventricular bigeminy COVID-19 10/23/2020 History of SARS-CoV-2 10/23/2020 Carpal tunnel syndrome of left wrist 11/18/2019 Left ventricular hypertrophy 06/03/2019 Overview (09/01/2024): On echo 05/2019, nl LV function, nl EF Last Assessment & Plan: The patient's LVH has not progressed on her most recent stress echocardiogram. Ongoing blood pressure control and weight management are paramount. Update her echocardiogram in about a year to follow her LVH. Microalbuminuria 12/27/2017 Renal disorder due to type 2 diabetes mellitus 0 12/27/2017 Metabolic syndrome 10/08/2017 Obstructive sleep apnea syndrome 09/29/2015 Overview (09/01/2024): 09/17/15, [facility], titration study, recommends CPAP 10 , elevation of head [facility] Polysomnogram: Date 09/17/2015; Wt 248#; BMI 43; SE 93%; SM 99%; REM 13%; AHI 16, REM AHI 15, Central apneas 0; Obstructive apneas 1; Mixed apneas 0; hypopneas 77; average oxygen saturation 94% (lowest 90%). [facility] Treatment Polysomnogram: Date 10/27/2015; Wt 248#; BMI 46; SE 81%; SM 100%; REM 28%; CPAP @ 10 -> AHI 0.9, average oxygen saturation 97% (lowest 94%). Multiple premature ventricular complexes 016 Overview (09/01/2024): Seen on sleep study Anxiety 06/10/2014 Hirsutism 06/10/2014 Hypertension 06/10/2014 Overview (09/01/2024): Last Assessment & Plan: The patient's blood pressure is well controlled in office and during her stress test. Her blood pressure is also well controlled on chart review. She is now followed by Dr. Stinson from renal, and she has an appointment upcoming with [...] that her blood pressure is well controlled. Migraine 06/10/2014 Severe obesity 06/10/2014 Overview (09/01/2024): bmi 41.66 /on 11/01/11 Diastolic dysfunction 06/10/2014 Overview (09/01/2024): Echo 2008/EFR 50-55% Encounters Date Type Department Care Team Description 03/03/2025 Orders Only [facility] [address] [phone] Harshad Juarez MD from Last 3 Months Social History Tobacco Use Types Packs/Day Years Used Date Smoking Tobacco: Never Assessed Comments Unknown Sex and Gender Information Value Date Recorded Sex Assigned at Not on file Legal Sex Female 3:34 PM EDT Gender Identity Not on file Sexual Orientation Not on file Last Filed Vital Signs Vital Sign Reading Time Taken Comments Blood Pressure 142/84 09/04/2024 9:17 AM EST Pulse 80 09/04/2024 9:17 AM EST Temperature - - Respiratory Rate - - Oxygen Saturation - - Inhaled Oxygen Concentration - - Weight 84.8 kg (187 lb) 09/04/2024 9:17 AM EST Height - - Body Mass Index - - Plan of Treatment Upcoming Encounters Date Type Department Care Team (Late st Contact Info) Description 09/06/2025 1:00 PM EST Office Visit [facility] [address] [phone] Harshad Juarez MD [address] [phone] Health Maintenance Due Date Last Done Comments Pneumococcal Vaccine: Peds ( 0 to 5 Years) and At-Risk Patients (6 to 49 Years) (2 of 2 - PCV) 10/24/2018 10/24/2017 Diabetes: Hemoglobin A1C 09/01/2024 Diabetes: Ophthalmology Exam 09/01/2024 Diabetes: Pedal Pulse Checked 09/01/2024 Diabetes: Sensory Foot Exam 09/01/2024 Diabetes: Visual Foot Exam 09/01/2024 Influenza Vaccine (#1) 2025 4, 06/27/2021, 07/28/2020, Additional history exists Hepatitis B Vaccine Completed 07/11/1999, 02/10/1999, 01/10/1999, Additional history exists Pneumococcal Vaccine: 50+ Years Discontinued 8 Procedures Procedure Name Priority Date/Time Associated Diagnosis Comments PHOSPHATE ( PHOSPHORUS) Routine 03/03/2025 8:20 AM EDT from Last 3 Months Results * Phosphorus (03/03/2025 8:20 AM EDT) Phosphorus 3.4 2.5 - 4.5 mg/dL [facility] 03/03/2025 8:20 AM EDT 03/03/2025 9:57 AM EDT us Harshad Juarez MD LAB BLOOD ORDERABLES Final Resul t [facility]) [facility] [address] [place] [address] from Last 3 Months Insurance Medicaid [place] [facility] Medicaid Care Teams Low Pressure Firer Relationship Specialty Start Date End Date Carl Nick MD [address] [place] [id number] PCP - General Internal Medicine 09/04/24
--- OUTSIDE RECORDS SUMMARY | 2025-05-17 16:56 | XMS_ITS | Clinical Summary ---
Author Organization [facility] Address [address] [place] [address] Care Team Providers Care Labelling Machine Operator Name Role Phone Carl Nick MD Primary Care Provider [phone] Allergies Active Allergy Reactions Criticality Noted Date Comments Lisinopril 04/03/2019 Angioedema Paroxetine 06/10/2014 sleeplessness Medications Medication Sig Dispensed Refills Start Date End Date Status acetaminophen (TYLENOL EXTRA STRENGTH) 500 MG tablet Take 500 mg by mouth. 0 11/16/2019 Active amLODIPine (NORVASC) tablet 10 mg Take 10 mg by mouth daily. 0 11/20/2020 Active Blood Glucose Calibration (FreeStyle Control Solution) LIQD USE DIRECTED 0 10/24/2020 Activ e Blood Glucose Monitoring Suppl (FreeStyle Lite) PRISCILA USE DIRECTED 0 10/24/2020 Active Vdutzxqvuw-SYIP-Gpgmw ine 50-300-40 MG CAPS TAKE 1 CAPSULE EVERY 6 TO 8 HOURS 0 12/03/2020 Active cloNIDine (CATAPRES) 0.2 MG tablet TAKE 1 TAB BY MOUTH 2 TIMES DAILY 0 12/22/2020 Active Lantus SoloStar 100 UNIT/ML injection INJECT 32 UNITS INTO THE SKIN AT BEDTIME. 0 12/02/2020 Active labetalol (NORMODYNE) 300 MG tablet TAKE 1 TAB BY MOUTH 2 TIMES DAILY FOR 360 DAYS. 0 11/20/2020 Active Victoza 18 MG/3ML injection 0 01/10/2021 Active metFORMIN (GLUCOPHAGE-XR) ER 24 hr tablet 500 mg TAKE 2 TABLETS BY MOUTH TWICE A DAY WITH FOOD IF TOLERATED 0 10/22/2020 Active spironolactone (ALDACTONE) tablet 25 mg Take 25 mg by mouth daily. 0 11/17/2020 Active valsartan (DIOVAN) tablet 320 mg 0 01/10/2021 Active Active Problems Problem Noted Date Diagnosed Date Leukocytosis 09/07/2022 Vitamin D deficiency 09/07/2022 COVID-19 virus infection 10/23/2020 Left carpal tunnel syndrome 11/18/2019 Type II diabetes mellitus wi th renal manifestations, uncontrolled 12/27/2017 Metabolic syndrome 10/08/2017 Obstructive sleep apnea hypopnea, moderate 09/29 Overview: 09/17/15, [facility], titration study, recommends CPAP 10 , elevation of head [facility] Polysomnogram: Date 09/17/2015; Wt 248#; BMI 43; SE 93%; SM 99%; REM 13%; AHI 16, REM AHI 15, Central apneas 0; Obstructive apneas 1; Mixed apneas 0; hypopneas 77; average oxygen saturation 94% (lowest 90%). [facility] Treatment Polysomnogram: Date 10/27/2015; Wt 248#; BMI 46; SE 81%; SM 100%; REM 28%; CPAP @ 10 -> AHI 0.9, average oxygen saturation 97% (lowest 94%). Anxiety 06/10/2014 Family History Medical History Relation Name Comments Hypertension Father Relation Name Status Comments Father high cholestero l Social History Tobacco Use Types Packs/Day Years Used Date Smoking Tobacco: Every Day Cigarettes Started: 2001 Smokeless Tobacco: Never Alcohol Use Standard Drinks/Week Comments No 0 (1 standard drink = 0.6 oz pur e alcohol) Sex and Gender Information Value Date Recorded Sex Assigned at Not on file Gender Identity Not on file Sexual Orientation Not on file Job Start Date Occupation Industry Not on file Not on file Not on file Last Filed Vital Signs Vital Sign Reading Time Taken Comments Blood Pressure 176/102 09/07/2022 4:13 PM EST Pulse 80 09/07/2022 4:13 PM EST Temperature 36.8 C (98.2 F) 09/07/2022 4:13 PM EST Respiratory Rate - - Oxygen Saturation 99% 09/07/2022 4:13 PM EST Inhaled Oxygen Concentration - - Weight 76.5 kg (168 lb 9.6 oz) 09/07/2022 4:13 P M EST Height 160 cm (5' 3 ) 07/26/2021 10:43 AM EDT Body Mass Index 29.87 07/26/2021 10:43 AM EDT Plan of Treatment Health Maintenance Due Date Last Done Comments Hepatitis C Screening 1986 Depression Screening 1998 Hepatitis B Vaccines (2 of 3 - 3-dose series) 02/07/1999 01/10/1999 BMI Counseling 2004 Preventative Health Evaluation 2004 Tobacco Cessation Counseling 2004 Cervical Cancer Screening (Pap Smear) 12/22/2007 Pneumococcal Vaccine (2 of 2 - PCV) 10/24/2018 10/24/2017 COVID-19 Vaccine ( season) 2024 09/08/2021, 12/30/2020, 12/09/2020 Influenza Vaccine (#1) 2025 , 07/28/2020, 07/11/2018 DTap / Tdap / Td (9 - Td or Tdap) 06/30/2031 06/30/2021, 07/01/2003, 08/02/1997, Additional history exists RSV Ped < 20 months Aged Out No longe r eligible based on patient's age to complete this topic Care Teams Labelling Machine Operator Relationship Specialty Start Date End Date Carl Nick MD PCP - General Machine Cementer 07/26/21
== END 2025-05-17 15:53 | disposition home or self-care (01) ==
LOC: HO.HSM 15:21
PROVIDERS: PCP Internal Medicine; Visit Provider Psychiatry & Neurology Neurology
DX: G43.009 Migraine without aura, not intractable, without status migrainosus (principal); G43.109 Migraine with aura, not intractable, without status migrainosus; G40.909 Epilepsy, unspecified, not intractable, without status epilepticus
CPT/HCPCS: 99214

== ENCOUNTER → 2025-05-17 15:20 | Outpatient (BNVA) | payer OTHER, SELFPAY | PROVIDERS: PCP Internal Medicine; Visit Provider Psychiatry & Neurology Neurology | DX: I10 Essential (primary) hypertension (principal); G43.109 Migraine with aura, not intractable, without status migrainosus | CPT/HCPCS: 99212 ==